=== PATIENT | male | born 1995 | race Caucasian/White ===

== ENCOUNTER 2020-11-04 08:04 | Inpatient (IN) | payer OTHER ==
[2020-11-04] MEDS ORDERED: ASPIRIN 81 MG PO STA (08:18)
[2020-11-04] MEDS ORDERED: MORPHINE SULFATE 2 MG/ML SYRINGE IVP STA (08:18)
--- NOTE | 2020-11-04 08:44 | XR ---
EXAMINATION TYPE: XR chest 2V DATE OF EXAM: 11/04/2020 COMPARISON: NONE HISTORY: Chest pain today. TECHNIQUE: Frontal and lateral views of the chest are obtained. FINDINGS: There is fairly moderate increased perihilar peribronchial cuffing bilaterally. No periphe ral focal airspace opacity. No pleural effusion or pneumothorax seen. The cardiac silhouette size is within normal limits. Note is made of left-sided arch and cardiac apex along with stomach bubble. Overlying EKG leads. The osseous structures are intact. IMPRESSION: Mild to moderate central perihilar peribronchial cuffing consistent with reactive airway disease possibly from a viral bronchiolitis or acute asthma exacerbation. Correlate clinically.
--- NOTE | 2020-11-04 08:50 | ED ---
Chest Pain HPI - General Chief Complaint: Chest Pain Stated Complaint: Chest pain Time Seen by Provider: 11/04/20 08:11 Source: patient, EMS Limitations: no limitations - History of Present Illness Initial Comments: Patient is a 25-year-old male presenting to emergency Department with complaints of chest pain that woke him up this morning. Patient states for the past week he has been feeling short of breath and coughing, but has not had any chest pain until this morning. He denies any fever or chills. He has been having some intermittent nausea, he did have some vomiting this morning. He denies any abdominal pain. Denies History of asthma or COPD. He states he does drink a lot of alcohol, last drink was last night with liquor. He also smokes marijuana. He denies any other drug use. He describes the pain as in the center of his chest, is very sharp, rated as 6/10 at this time. He denies any radiation. He denies history of any blood clots or heart disease. He does not take any medications. He has no further complaints at this time. Upon arrival to the ER, he is afebrile, pulse is 135, rest of vitals are normal. - Related Data Home Medications Medication Instructions Recorded Confirmed Aspirin EC [Ecotrin Low Dose] 81 mg PO DAILY PRN 11/04/20 11/04/20 Ibuprofen [Advil] 200 mg PO Q8HR PRN 11/04/20 11/04/20 Allergies Allergy/AdvReac Type Severity Reaction Status Date / Time No Known Allergies Allergy Verified 11/04/20 08:52 Review of Systems ROS Statement: Those systems with pertinent positive or pertinent negative responses have been documented in the HPI. ROS Other: All systems not noted in ROS Statement are negative. EKG Findings - EKG Comments: EKG Findings:: Sinus tach, T-wave abnormalities, no signs of acute ischemia. Ventricular rate 136, MT interval 134, QT 306. Past Medical History History of Any Multi-Drug Resistant Organisms: None Reported Past Psychological History: No Psychological Hx Reported Smoking Status: Current some day smoker Past Alcohol Use History: Heavy Past Drug Use History: Marijuana General Exam - General Exam Comments Initial Comments: GENERAL: Patient is well-developed and well-nourished. Patient is nontoxic and in mild distress. HEAD: Atraumatic, normocephalic. EYES: Pupils equal round and reactive to light, extraocular movements intact, sclera anicteric, conjunctiva are normal. Eyelids were unremarkable. ENT: TMs normal, nares patent, oropharynx clear without exudates. Moist mucous membranes. NECK: Normal range of motion, supple without lymphadenopathy or JVD. LUNGS: Unlabored respirations. Breath sounds clear to auscultation bilaterally and equal. No wheezes rales or rhonchi. HEART: Tachycardia rate and rhythm without murmurs, rubs or gallops. ABDOMEN: Soft, nontender, normoactive bowel sounds. No guarding, no rebound. No masses appreciated. : Deferred MUSCULOSKELETAL: Normal extremities with adequate strength and normal range of motion, no pitting or edema. No clubbing or cyanosis. NEUROLOGICAL: Patient is alert and oriented x 3. Motor and sensory are also intact. Cranial nerves II through XII grossly intact. Symmetrical smile. Normal speech, normal gait. PSYCH: Normal mood, normal affect. SKIN: Warm, Dry, normal turgor, no rashes or lesions noted. Limitations: no limitations Course Vital Signs 11/04/20 11/04/20 11/04/20 08:10 08:15 08:39 Temperature 98.1 F Pulse Rate 135 H 129 H Respiratory 18 18 18 Rate Blood Pressure 153/103 138/94 O2 Sat by Pulse 98 98 Oximetry Chest Pain [facility] Patient is 25-year-old male here for chest pain that started this morning as well as shortness of breath 1 week. History of alcohol abuse, positive marijuana. Patient did arrive tachycardia at 135, rest of vitals were normal, afebrile. EKG shows sinus tach, no acute process. Chest x-ray shows mild to moderate central perihilar peribronchial cuffing insistent with reactive airway disease. Labs shows slight leukocytosis at 13.6, dimer is elevated at 1.83. Epigastric is 2.2, LDH is 795, troponin 0.015. Serum alcohol is less than 10. Rapid Covid is not detected. CTA of the chest was ordered secondary to elevated dimer, no convincing evidence for PE however there are tiny bilateral pleural effusions, subtle more focal areas of groundglass opacity and approved feel the right lower lung. Patient is on 2 L oxygen, satting 98%, he remains tachycardia in the 120 to 130s. He is in no acute distress. Patient was given some morphine, Ativan. Patient will be admitted for cardiac rule out, versus possible infectious process, versus alcohol withdrawal. Pt accepted by Dr. Goss. Case discussed with Dr. Pat. - Wells Criteria Clinical Symptoms of DVT: (0) No No Alternative Diagnosis: (0) No Immobilization of Surgery in Previous 4 Weeks: (0) No Previous DVT/PE: (0) No Hemoptysis: (0) No Malignancy: (0) No Disposition Clinical Impression: Chest pain, Tachycardia, Dyspnea Disposition: ADMITTED IP TO THIS HOSP Condition: Stable Referrals: Claudio Kohler MD [Primary Care Provider] - 1-2 days Decision Date: 11/04/20 Decision Time: 10:44
[2020-11-04 08:51] LABS: ALT 32 U/L (4-49); AST 34 U/L (17-59); African American GFR (CKD) >90 (>60 ml/min/1.73 sqM); Albumin 4.6 g/dL (3.5-5.0); Alcohol <10 mg/dL; Alkaline Phosphatase 84 U/L (38-126); Anion Gap 13 mmol/L; Blood Urea Nitrogen 13 mg/dL (9-20); Calcium 9.3 mg/dL (8.4-10.2); Carbon Dioxide 20 mmol/L (22-30); Chloride 105 mmol/L (98-107); Glucose 146 mg/dL (74-99); LDH 795 U/L (313-618); Magnesium 1.8 mg/dL (1.6-2.3); Non-African American GFR(CKD) 86 (>60 ml/min/1.73 sqM); Potassium 4.4 mmol/L (3.5-5.1); Sodium 138 mmol/L (137-145); Total Bilirubin 0.8 mg/dL (0.2-1.3); Total Protein 7.9 g/dL (6.3-8.2)
[2020-11-04 08:56] LABS: Basophils # (A) 0.1 k/uL (0-0.2); Basophils % (A) 1 %; Eosinophils # (A) 0.1 k/uL (0-0.7); Eosinophils % (A) 1 %; HGB 17.4 gm/dL (13.0-17.5); Lymphocytes # (A) 1.1 k/uL (1.0-4.8); Lymphocytes % (A) 8 %; MCH 31.7 pg (25.0-35.0); MCHC 33.5 g/dL (31.0-37.0); MCV 94.8 fL (80.0-100.0); Monocytes # (A) 0.6 k/uL (0-1.0); Monocytes % (A) 4 %; Neutrophils # (A) 11.6 k/uL (1.3-7.7); Neutrophils % (A) 86 %; Platelet Count 385 k/uL (150-450); RBC 5.48 m/uL (4.30-5.90); RDW 12.8 % (11.5-15.5); WBC 13.6 k/uL (3.8-10.6)
[2020-11-04 09:01] LABS: Partial Thromboplastin Time 22.7 sec (22.0-30.0); Prothrombin Time 10.3 sec (9.0-12.0)
[2020-11-04 09:16] LABS: D-Dimer 1.83 mg/L FEU (<0.60)
--- NOTE | 2020-11-04 10:03 | CT ---
EXAMINATION TYPE: CT chest angio for PE DATE OF EXAM: 11/04/2020 COMPARISON: Chest x-ray earlier today HISTORY: Elevated d-dimer. Chest pain CT DLP: 582.2 mGycm Automated exposure control for dose reduction was used. CONTRAST: CT Chest for pulmonary embolism performed with with IV Contrast, patient injected with 100 mL of Isov ue 300. FINDINGS: LUNGS: Small to tiny bilateral pleural effusions. Increased central opacities bilaterally. Exam sligh tly suboptimal as patient has difficulty holding breath. Additional areas of more focal groundglass o pacity are identified in the right lower lung towards the periphery. Reference lateral right lower lo be axial image 70 and in the right middle lobe axial image 62. No pneumothorax seen bilaterally. Mild central increased opacity bilaterally. Moderate central peribronchial wall thickening. MEDIASTINUM: There is suboptimal bolus with heterogeneity but no CT evidence for acute pulmonary embo lism. Satisfactory enhancement of the aorta without aneurysm or dissection. No cardiomegaly or peric ardial effusion is seen. Enlarged bilateral hilar lymph nodes. Enlarged 2.9 x 1.9 cm subcarinal lym ph node. OTHER: No additional significant abnormality is seen. IMPRESSION: 1. Suboptimal study but no convincing CT evidence for acute pulmonary embolism. 2. Multiple tiny bilateral pleural effusions and mild central alveolar edema. Correlate for fluid ove rload state. 3. Moderate peribronchial wall thickening and thoracic adenopathy presumed reactive, correlate for ac maria l infectious process, favor viral bronchiolitis. Subtle more focal areas of groundglass opacity in the periphery of the right lower lung are identified raising concern for developing multifocal pneumo nitis.
[2020-11-04] MEDS ORDERED: LORazepam 2 MG/ML INJ IV STA (10:19)
[2020-11-04] MEDS ORDERED: NITROGLYCERIN SL TABS 0.4 MG TAB SUBLINGUAL PRN (10:40)
[2020-11-04] MEDS: AMOXIC-POT CLAV 875-125MG 1 EACH TAB PO SCH ×2 (11:10→21:10)
[2020-11-04] MEDS ORDERED: SODIUM CHLORIDE 0.9% (DEHP FRE 500 ML IV ONE (11:16)
[2020-11-04] MEDS ORDERED: ONDANSETRON 4 MG/2 ML VIAL IVP PRN (11:16)
[2020-11-04] MEDS ORDERED: THIAMINE 100 MG/ML 2 ML VIAL IM STA (11:17)
[2020-11-04] MEDS ORDERED: LORazepam 2 MG/ML INJ IV PRN ×3 (11:17)
--- NOTE | 2020-11-04 11:26 | P.HPIM ---
History of Present Illness H&P Date: 11/04/20 Chief Complaint: Chest pain This is a 25-year-old male with past medical history significant for heavy alcohol abuse who presented to the emergency room with chest pain. Patient said that he woke up from his sleep with a severe chest pain in the middle of his chest that he described as if someone was stepping on his chest. He rated the severity as 7 out of 10. There was no radiation. No diaphoresis or nausea. Patient said that he has been feeling more short of breath over the past week or 2 and having the cough that is productive of clear sputum. He denies any fevers or chills. No sick contact. No other known medical history. Patient said that he smoked marijuana on a daily basis and he drink a fifth of whiskey daily. His last drink was at 8 PM last night. Patient was evaluated in the emergency room and was found to have evidence of sepsis without septic shock. D-dimer was elevated but CT angiogram was negative for any obvious PE though it was a suboptimal study. Patient was noted to have evidence of bronchitis on imaging. He was also noted to be tachycardic with a heart rate up to 140. Twelve-lead EKG in the emergency room showed no acute is chemic changes. Initial troponin was negative. Patient was placed on observation for further evaluation Review of Systems Review of system: 14 points review of systems were obtained and were negative except to what were mentioned in the HPI. Past Medical History History of Any Multi-Drug Resistant Organisms: None Reported Past Psychological History: No Psychological Hx Reported Smoking Status: Current some day smoker Past Alcohol Use History: Heavy Past Drug Use History: Marijuana Medications and Allergies Home Medications Medication Instructions Recorded Confirmed Type Aspirin EC [Ecotrin Low Dose] 81 mg PO DAILY PRN 11/04/20 11/04/20 History Ibuprofen [Advil] 200 mg PO Q8HR PRN 11/04/20 11/04/20 History Allergies Allergy/AdvReac Type Severity Reaction Status Date / Time No Known Allergies Allergy Verified 11/04/20 08:52 Physical Exam Vitals: Vital Signs Temp Pulse Resp BP Pulse Ox 11/04/20 10:14 135 H 18 141/106 98 11/04/20 09:14 132 H 18 142/90 98 11/04/20 08:39 129 H 18 138/94 98 11/04/20 08:15 18 11/04/20 08:10 98.1 F 135 H 18 153/103 98 Intake and Output 11/03/20 11/04/20 11/04/20 22:59 06:59 14:59 Other: Weight 108.862 kg General: The patient is awake and alert, in no distress Eye: there is normal conjunctiva bilaterally. Neck: The neck is supple, there is no JVD. Cardiovascular: Normal S1-S2, no S3-S4, no murmurs. Respiratory: Lungs clear to auscultation bilaterally Gastrointestinal: Abdomen is soft, nontender Musculoskeletal: There is no pedal edema. Neurological:. Speech is normal. Skin: Skin is warm and dry Results CBC & Chem 7: 11/04/20 08:12 11/04/20 08:12 Labs: Abnormal Lab Results - Last 24 Hours (Table) 11/04/20 11/04/20 11/04/20 Range/Units 08:12 08:12 08:12 WBC 13.6 H (3.8-10.6) k/uL Neutrophils # 11.6 H (1.3-7.7) k/uL D-Dimer 1.83 H (<0.60) mg/L FEU Carbon Dioxide 20 L (22-30) mmol/L Glucose 146 H (74-99) mg/dL Plasma Lactic Acid Omar (0.7-2.0) mmol/L Lactate Dehydrogenase 795 H (313-618) U/L 11/04/20 Range/Units 08:12 WBC (3.8-10.6) k/uL Neutrophils # (1.3-7.7) k/uL D-Dimer (<0.60) mg/L FEU Carbon Dioxide (22-30) mmol/L Glucose (74-99) mg/dL Plasma Lactic Acid Omar 2.2 H* (0.7-2.0) mmol/L Lactate Dehydrogenase (313-618) U/L Assessment and Plan Assessment: 1. Chest pain, mostly atypical in nature. Twelve-lead EKG showed no acute ischemic changes. Initial troponin was negative. We will continue telemetry monitoring. Cardiology consulted by ER staff 2. Acute bronchitis, most likely viral but will cover patient with antibiotic in the form of Augmentin for 5 days to cover any bacterial infection. Sputum culture ordered. COVID-19 negative in the ER 3. Sepsis without septic shock, lactic acid slightly elevated. We will start aggressive IV fluid hydration. Blood culture sent and pending. 4. Elevated d-dimer, CT angiogram in the ER negative for PE though was a subop timal study. PE is less likely clinically. I would obtain ultrasound of the lower extremity to rule out DVT. 5. Alcohol withdrawal, I would start the patient on Valium 5 mg 3 times a day. CIWA protocol with IV Ativan as needed. 6. Sinus tachycardia, secondary to above 7. Alcohol abuse: Counseled extensively to quit. Social work consult to help with resources. Started on vitamins. 8. Marijuana smoking, counseled to quit 9. DVT prophylaxis with subcu heparin Today, I reviewed his medication list and lab work results. I ordered IV fluid bolus with normal saline 500 mL. Continue IV fluid hydration with D5/half- normal saline at the 100 mL per hour. Continue telemetry monitoring. Repeat lab work in the morning.
[2020-11-04] MEDS: PANTOPRAZOLE 40 MG/10 ML VIAL IVP SCH (11:43)
[2020-11-04] MEDS: diazePAM 5 MG TAB PO SCH ×3 (11:43→21:10)
--- NOTE | 2020-11-04 13:05 | CONS ---
CONSULTATION Mr. Justin is a 25-year-old male who has not seen a physician in a while, presented to the emergency room with an episode of chest discomfort that woke him up from sleep. The discomfort was in the middle of the chest. He noted that his heart rate was fast and because of that came into the emergency room. For the last 10 to 14 days, he has been complaining of progressive dyspnea with sweating and cough, but no documented fever. He is not active physically. He had no prior episode of chest discomfort. The discomfort continues until my evaluation, but it is better. He denies any peripheral edema. No syncope. He has no PND, orthopnea. He has no prior cardiac history. His coronary risk factors are negative for documented hypertension or diabetes. He has no hyperlipidemia. He does not smoke tobacco, but smokes marijuana on a daily basis as well as drinks large amount of alcohol daily and caffeine. His medication at home include aspirin and Advil on as needed basis. REVIEW OF SYSTEMS: RESPIRATORY SYSTEM: He had dyspnea on exertion with a cough. GI SYSTEM: No recent GI bleeding. No peptic ulcer disease. SYSTEM: No dysuria or hematuria. NERVOUS SYSTEM: No stroke or seizure. PHYSICAL EXAMINATION: A 25-year-old male, alert, oriented, in no apparent distress. Blood pressure 135/109 with the heart rate in the 130s. HEAD: Normocephalic. EYES: Sclerae nonicteric. NECK: Good carotid upstroke. No bruit. LUNGS: With scattered crackles bilaterally. HEART: Tachycardic, S1, S2, plus S4. No rub , systolic murmur. ABDOMEN: Soft, nontender. Positive bowel sounds. No organomegaly. EXTREMITIES: No edema. Intact distal pulses. LAB DATA: Lab data revealed troponin less of 0.015. LDL 795. Plasma lactic acid 2.2. BUN and creatinine of 13 and 1.17. Potassium 4.4. D-dimer of 1.83. Hemoglobin of 17.4, white blood cell of 13.6. EKG revealed a sinus tachycardia with borderline left axis deviation and nonspecific ST- T wave changes. Chest CT angiogram shows multiple tiny bilateral pleural effusion and mild centrilobular edema with moderate peribronchial wall thickening and thoracic adenopathy. There is some focal area of ground-glass opacity. IMPRESSION: 1. Chest discomfort, probably noncardiac. No evidence to suggest acute coronary syndrome. 2. Abnormal chest x-ray with progressive dyspnea, rule out infectious process. 3. Sinus tachycardia, most likely reactive. 4. Elevated blood pressure. 5. Chronic alcohol intake. 6. Chronic marijuana intake. RECOMMENDATION: I will obtain echocardiogram with Doppler. We will check his thyroid function test. I will start him on low-dose beta nancy because of his hypertension. I will continue the rest of his medical regimen and depending on his progress, further recommendation will be made. Thank you for this consult. We will follow with you. YAIRL / IJN: [id number] / HILDA
[2020-11-04] MEDS: DEXTROSE 5%-0.45% NACL 1,000 ML IV SCH ×2 (13:35→21:18)
[2020-11-04] MEDS: METOPROLOL TARTRATE 25 MG TAB PO SCH ×2 (13:35→21:10)
--- NOTE | 2020-11-04 15:42 | US ---
EXAMINATION TYPE: US venous doppler duplex LE BI DATE OF EXAM: 11/04/2020 3:15 PM COMPARISON: NONE CLINICAL HISTORY: Rule out DVT. SIDE PERFORMED: Bilateral TECHNIQUE: The lower extremity deep venous system is examined utilizing real time linear array sonog esther with graded compression, doppler sonography and color-flow sonography. VESSELS IMAGED: Common Femoral Vein Deep Femoral Vein Greater Saphenous Vein * Femoral Vein Popliteal Vein Small Saphenous Vein * Proximal Calf Veins (* superficial vessels) Right Leg: Negative for DVT Left Leg: Negative for DVT IMPRESSION: No evidence for DVT at this time.
--- NOTE | 2020-11-04 15:56 | P.CNPUL ---
History of Present Illness Consult date: 11/04/20 Requesting physician: Mariano Cuba Reason for consult: dyspnea, chest pain, abnormal CXR/CT Chief complaint: Chest pain, shortness of breath History of present illness: A very pleasant 25-year-old male patient with no current primary care provider. No significant medical history. He does drink a pint of liquor on a daily basis. He also smokes marijuana. He denied any other drug use. He woke up early this morning with significant chest pain in the center of his chest. He had been fighting an upper respiratory infection earlier in the week. Hemodynamically emergency room secondary to the chest pain. Chest x-ray revealed mild to moderate central perihilar bronchial cuffing consistent with reactive airway disease possibly viral bronchiolitis. CT angiogram ruled out pulmonary embolism. There is a tiny bilateral pleural effusions. Subtle areas of groundglass opacity and some moderate peribronchial wall thickening and thoracic adenopathy. Largest measuring 2.9 x 1.9 cm in the subcarinal lymph node. White count 13.6. Hemoglobin 17.4. D-dimer 1.83. Sodium 138. Potassium 4.4. Glucose 146. Initial lactic 2.2. Currently 1.6. LDH 795. Troponin 0.015, 0.358. ProBNP 1010. Serum alcohol less than 10. Coronavirus not detected. Doppler of the lower extremities pending. Echocardiogram pending. He's been initiated on Augmentin, IV diuretics, Aldactone, adan inhibitors, beta blockers per cardiology. He's also been placed on the CIWA protocol. He is seen today in consultation on the selective care unit. He is currently sitting up in bed. Awake and alert in no acute distress. Maintaining O2 saturations in the upper 90s on room air. He remains tachycardic in the 130s. Somewhat hypertensive. Afebrile. Heparin for DVT prophylaxis. Review of Systems REVIEW OF SYSTEMS: CONSTITUTIONAL: Denies any recent significant weight loss or weight gain. EYES: Denies change in vision. EARS, NOSE, MOUTH, THROAT: Denies headaches, denies sore throat. CARDIOVASCULAR: Positive for chest pain, palpitations or syncopal episodes. RESPIRATORY: Positive for shortness of breath, cough, congestion no hemoptysis. GASTROINTESTINAL: Denies change in appetite, denies abdominal pain GENITOURINARY: Denies hematuria, denies infections. MUSKULOSKELETAL: Denies pain, denies swelling. INTEGUMENTARY: Denies rash, denies eczema. NEUROLOGICAL: Denies recent memory loss, no recent seizure activity. PSYCHIATRIC: Denies anxiety, denies depression. HEMATOLOGIC/LYMPHATIC: Denies anemia, denies enlarged lymph nodes. Past Medical History Past Medical History: No Reported History History of Any Multi-Drug Resistant Organisms: None Reported Past Surgical History: No Surgical Hx Reported Past Anesthesia/Blood Transfusion Reactions: Unable to Obtain Additional Past Anesthesia/Blood Transfusion Reaction / Comment(s): Pt has never had surgery Smoking Status: Never smoker - Past Family History Father Family Medical History: Hypertension Mother Family Medical History: No Reported History Medications and Allergies Home Medications Medication Instructions Recorded Confirmed Type Aspirin EC [Ecotrin Low Dose] 81 mg PO DAILY PRN 11/04/20 11/04/20 History Ibuprofen [Advil] 200 mg PO Q8HR PRN 11/04/20 11/04/20 History Allergies Allergy/AdvReac Type Severity Reaction Status Date / Time No Known Allergies Allergy Verified 11/04/20 08:52 Physical Exam Vitals: Vital Signs Temp Pulse Pulse Resp BP BP Pulse Ox 11/04/20 14:25 139 H 16 140/90 93 L 11/04/20 13:00 98.3 F 135 H 22 147/83 99 11/04/20 12:00 133 H 22 145/97 99 11/04/20 11:30 98.3 F 133 H 133 H 20 135/109 97 11/04/20 10:14 135 H 18 141/106 98 11/04/20 09:14 132 H 18 142/90 98 11/04/20 08:39 129 H 18 138/94 98 11/04/20 08:15 18 11/04/20 08:10 98.1 F 135 H 18 153/103 98 Intake and Output 11/04/20 11/04/20 11/04/20 06:59 14:59 22:59 Other: Weight 108.862 kg GENERAL EXAM: Alert, active, pleasant 25-year-old gentleman, on room air, comfortable in no apparent distress. HEAD: Normocephalic. EYES: Normal reaction of pupils, equal size. NOSE: Clear with pink turbinates. THROAT: No erythema or exudates. NECK: No masses, no JVD. CHEST: No chest wall deformity. LUNGS: Equal air entry with faint crackles in the posterior bases. CVS: S1 and S2 normal with audible rub, tachycardic, regular. ABDOMEN: No hepatosplenomegaly, normal bowel sounds, no guarding or rigidity. SPINE: No scoliosis or deformity SKIN: No rashes CENTRAL NERVOUS SYSTEM: No focal deficits, tone is normal in all 4 extremities. EXTREMITIES: There is no peripheral edema. No clubbing, no cyanosis. P eripheral pulses are intact. Results - Laboratory Findings CBC and BMP: 11/04/20 08:12 11/04/20 08:12 PT/INR, D-dimer PT 10.3 sec (9.0-12.0) 11/04/20 08:12 INR 1.0 (<1.2) 11/04/20 08:12 D-Dimer 1.83 mg/L FEU (<0.60) H 11/04/20 08:12 Abnormal lab findings: Abnormal Labs 11/04/20 11/04/20 11/04/20 08:12 08:12 08:12 WBC 13.6 H Neutrophils # 11.6 H D-Dimer 1.83 H Carbon Dioxide 20 L Glucose 146 H Plasma Lactic Acid Omar Lactate Dehydrogenase 795 H Troponin I 11/04/20 11/04/20 08:12 11:01 WBC Neutrophils # D-Dimer Carbon Dioxide Glucose Plasma Lactic Acid Omar 2.2 H* Lactate Dehydrogenase Troponin I 0.358 H* - Diagnostic Findings Chest x-ray: image reviewed Assessment and Plan Assessment: 1 Chest pain of unclear etiology. Pulmonary embolism ruled out 2 Troponin leak, tachycardia, bilateral pleural effusions, mild central alveolar edema. Echocardiogram pending. 3 Thoracic adenopathy of unclear etiology, presumed reactive, possible acute infectious process versus viral bronchiolitis, sarcoidosis. 4 Recent symptoms of upper respiratory infection 5 Mild leukocytosis 6 Elevated d-dimer. CT angiogram ruled out pulmonary embolism. Dopplers of the lower extremities pending. 7 Daily alcohol use 8 Marijuana use Plan: The patient was seen and evaluated by Dr. Burrell Chest x-ray, CAT scan and labs reviewed Dopplers of the lower extremity pending Heparin for DVT prophylaxis Obtain ADAN and sed rate levels Possible alcoholic cardiomyopathy Echocardiogram pending Continue IV Lasix, Aldactone, Adan catheter, beta blockers Continue CIWA protocol Continue empiric antibiotics We will continue to follow and make further recommendations based on his clinical status I, the cosigning physician, performed a history & physical examination of the patient. Lungs sounds with faint crackles in the posterior bases. Maintaining good O2 saturations in the 90s on room air. I discussed the assessment and plan of care with my nurse practitioner, Dagmar Ramos. I attest to the above consultation as dictated by her. Time with Patient: Greater than 30
[2020-11-04] MEDS: ATORVASTATIN 80 MG TAB PO SCH (16:48)
[2020-11-04] MEDS: THIAMINE 100 MG TAB PO SCH (16:48)
[2020-11-04] MEDS: HEPARIN SOD,PORK IN 0.45% NACL 25,000 UNIT in 0.45% NACL 1 250ML.BAG IV SCH (16:48)
--- NOTE | 2020-11-04 18:00 | ECHOF ---
Referral Reason:LV function MEASUREMENTS -------- HEIGHT: 172.7 cm WEIGHT: 108.9 kg BP: 135/109 RVIDd: 3.1 cm (< 3.3) IVSd: 1.1 cm (0.6 - 1.1) LVIDd: 5.0 cm (3.9 - 5.3) LVPWd: 1.0 cm (0.6 - 1.1) IVSs: 1.5 cm LVIDs: 4.2 cm LVPWs: 1.4 cm LA Diam: 4.7 cm (2.7 - 3.8) LAESV Index (A-L): 37.74 ml/m Ao Diam: 3.4 cm (2.0 - 3.7) AV Cusp: 2.2 cm (1.5 - 2.6) MV EXCURSION: 17.701 mm (> 18.000) MV EF SLOPE: 233 mm/s (70 - 150) EPSS: 1.8 cm RAP: 5.00 mmHg RVSP: 54.18 mmHg FINDINGS -------- Sinus rhythm. Resting tachycardia (HR>100bpm). This was a technically adequate study. The left ventricular size is normal. There is borderline concentric left ventricular hypertrophy. Overall left ventricular systolic function is severely impaired with, an EF < 20%. The right ventricle is normal in size. The right ventricular systolic function is moderately impair ed. LA is moderately dilated 34-39 ml/m2 The right atrial size is normal. Interatrial and interventricular septum intact. The aortic valve is bicuspid. The mitral valve is normal. Xpeq-wv-advckyou mitral regurgitation is present. Bocg-ky-jherrkju tricuspid regurgitation present. There is moderate pulmonary hypertension. The r ight ventricular systolic pressure, as measured by Doppler, is 54.18mmHg. There is no pulmonic regurgitation present. The aortic root size is normal. IVC Not well visulized. There is no pericardial effusion. CONCLUSIONS -------- 1. There is borderline concentric left ventricular hypertrophy. 2. Overall left ventricular systolic function is severely impaired with, an EF < 20%. 3. LA is moderately dilated 34-39 ml/m2 4. The aortic valve is bicuspid. 5. Uyyb-ae-ghufmzzh mitral regurgitation is present. 6. Hszq-lm-gaguuoqv tricuspid regurgitation present. 7. There is moderate pulmonary hypertension. 8. There is no pericardial effusion. CLAIMS TECHNICIAN: Sherri Rebollar RDCS
[2020-11-04] MEDS ORDERED: SPIRONOLACTONE 25 MG TAB PO SCH (21:00)
[2020-11-04] MEDS ORDERED: HEPARIN SODIUM,PORCINE 5,000 UNIT/ML 1 ML VIAL SQ SCH (21:00)
[2020-11-04] MEDS: FUROSEMIDE 10 MG/ML 4 ML VIAL IV SCH (21:09)
[2020-11-04] MEDS: lisinopriL 5 MG TAB PO SCH (21:10)
[2020-11-04 23:40] LABS: Ferritin 147.8 ng/mL (22.0-322.0)
[2020-11-04] MEDS: guaiFENesin SYRUP 100MG/5ML 200 MG/10 ML CUP PO PRN (23:57)
[2020-11-05] MEDS: HEPARIN SODIUM,PORCINE 5,000 UNIT/ML 1 ML VIAL IV PRN ×3 (02:05→17:47)
[2020-11-05] MEDS: THIAMINE 100 MG TAB PO SCH ×2 (06:21→16:53)
[2020-11-05] MEDS: ASPIRIN 81 MG PO SCH (08:26)
[2020-11-05] MEDS: lisinopriL 5 MG TAB PO SCH ×2 (08:26→20:24)
[2020-11-05] MEDS: ATORVASTATIN 80 MG TAB PO SCH (08:26)
[2020-11-05] MEDS: FUROSEMIDE 10 MG/ML 4 ML VIAL IV SCH ×2 (08:27→20:24)
[2020-11-05] MEDS: AMOXIC-POT CLAV 875-125MG 1 EACH TAB PO SCH (08:27)
[2020-11-05] MEDS: METOPROLOL TARTRATE 25 MG TAB PO SCH ×4 (08:27→20:24)
[2020-11-05 08:28] LABS: Basophils # (A) 0.2 k/uL (0-0.2); Basophils % (A) 1 %; Eosinophils # (A) 0.1 k/uL (0-0.7); Eosinophils % (A) 1 %; HCT 51.2 % (39.0-53.0); HGB 17.3 gm/dL (13.0-17.5); Lymphocytes # (A) 1.5 k/uL (1.0-4.8); Lymphocytes % (A) 13 %; MCHC 33.9 g/dL (31.0-37.0); MCV 94.4 fL (80.0-100.0); Mean Platelet Volume 6.7; Monocytes # (A) 0.7 k/uL (0-1.0); Monocytes % (A) 6 %; Neutrophils % (A) 77 %; Platelet Count 324 k/uL (150-450); RBC 5.42 m/uL (4.30-5.90); RDW 12.6 % (11.5-15.5); WBC 11.8 k/uL (3.8-10.6)
[2020-11-05] MEDS: PANTOPRAZOLE 40 MG/10 ML VIAL IVP SCH (08:28)
[2020-11-05] MEDS: SPIRONOLACTONE 25 MG TAB PO SCH (08:28)
[2020-11-05] MEDS: diazePAM 5 MG TAB PO SCH ×3 (08:36→20:24)
[2020-11-05 08:45] LABS: African American GFR (CKD) >90 (>60 ml/min/1.73 sqM); Anion Gap 10 mmol/L; Blood Urea Nitrogen 8 mg/dL (9-20); Calcium 9.3 mg/dL (8.4-10.2); Carbon Dioxide 25 mmol/L (22-30); Chloride 101 mmol/L (98-107); Cholesterol 236 mg/dL (<200); Glucose 114 mg/dL (74-99); HDL Cholesterol 63 mg/dL (40-60); LDL Cholesterol,Calculated 137 mg/dL (0-99); Non-African American GFR(CKD) >90 (>60 ml/min/1.73 sqM); Sodium 136 mmol/L (137-145); Triglycerides 179 mg/dL (<150)
[2020-11-05] MEDS ORDERED: ASPIRIN 325 MG TAB PO SCH (09:00)
--- NOTE | 2020-11-05 09:02 | XR ---
EXAMINATION TYPE: XR chest 1V portable DATE OF EXAM: 11/05/2020 COMPARISON: Prior chest x-ray and CT 11/04/2020 HISTORY: Congestive heart failure TECHNIQUE: Single frontal view of the chest is obtained. FINDINGS: Findings are similar to prior exam. Patient is rotated. No evident pneumothorax or pleural effusion. Cardiomediastinal silhouette is stable. IMPRESSION: Patient's pleural effusions are not seen, interstitial edema changes appear slightly imp roved
--- NOTE | 2020-11-05 10:47 | P.PN ---
Subjective Progress Note Date: 11/05/20 This is a 25-year-old gentleman who was seen in consultation by Dr. Cuba. He presented to the hospital with symptoms of chest discomfort that woke him from sleep. He also noted that his heart rate was quite fast. He came to the emergency room for further evaluation. Over the past 10-14 days patient has been complaining of progressive dyspnea as well as associated sweating and cough with no documented fever. His coronary risk factors are negative for documented hypertension, diabetes. He has no hyperlipidemia, he does not smoke tobacco but he does smoke marijuana on a daily basis and drinks at least a pint of alcohol daily as well as caffeine. His initial EKG on presentation here showed a sinus tachycardia. His chest x-ray showed mild to moderate central perihilar bronchial cuffing consistent with reactive airway disease, possibly viral bronchiolitis. CTA ruled out a pulmonary embolism but did show tiny bilateral pleural effusions and several areas of groundglass O pace that he, wall thickening, and thoracic adenopathy. Largest measuring 2.9 x 1.97 cm in the subcarinal lymph node. He had an echocardiogram with Doppler study performed which revealed an ejection fraction of less than 20%, mild to moderate MR, gauf-ec-mosxzhbo TR and moderate pulmonary hypertension, no evidence of pericardial effusion. Bilateral venous duplex study negative for DVT in either lower extremity. Repeat chest x-ray was performed, pleural effusions were not noted, interstitial edema changes appeared slightly improved. Patient was complaining of some intermittent abdominal discomfort this morning. No diarrhea. Blood pressure 120/80, heart rate in the 120s, 95% on room air. Whit e blood cell count 11.8, TRAE globin 17.3, platelet count 324. Sodium 136, potassium 4.0, BUN 8, creatinine 1.1. Troponins 0.015, 0.358, 4.7. Cholesterol 236, triglycerides 179, LDL 137, HDL 63. Objective - Vital Signs Vital signs: Vital Signs Temp 98.5 F 11/05/20 08:23 Pulse 128 H 11/05/20 08:23 Resp 18 11/05/20 08:23 BP 119/87 11/05/20 08:23 Pulse Ox 95 11/05/20 08:23 Intake & Output 11/04/20 11/05/20 11/05/20 18:59 06:59 18:59 Intake Total 567.87 103.948 Balance 567.87 103.948 Weight 108.862 kg 110.5 kg Intake: Intake, IV Titration 92.87 103.948 Amount Heparin Sod,Pork in 0.45% 92.87 103.948 NaCl 25,000 unit In 0.45 % NaCl 1 250ml.bag @ 9.19 UNITS/KG/HR 10.004 mls/ hr IV .Q24H [facility] Rx#: [id number] Oral 475 Other: Voiding Method Toilet Toilet # Voids 6 - Exam GENERAL EXAM: Alert, active, pleasant 25-year-old gentleman, on room air, comfortable in no apparent distress. HEAD: Normocephalic. EYES: Normal reaction of pupils, equal size. NOSE: Clear with pink turbinates. THROAT: No erythema or exudates. NECK: No masses, no JVD. CHEST: No chest wall deformity. LUNGS: Equal air entry with faint crackles in the posterior bases. CVS: S1 and S2 normal with systolic murmur , tachycardic, regular. ABDOMEN: No hepatosplenomegaly, normal bowel sounds, no guarding or rigidity. SPINE: No scoliosis or deformity SKIN: No rashes CENTRAL NERVOUS SYSTEM: No focal deficits, tone is normal in all 4 extremities. EXTREMITIES: There is no peripheral edema. No clubbing, no cyanosis. Peripheral pulses are intact. - Labs CBC & Chem 7: 11/05/20 08:04 11/05/20 08:04 Labs: Abnormal Lab Results - Last 24 Hours (Table) 11/04/20 11/04/20 11/05/20 Range/Units 11:01 14:32 08:04 WBC (3.8-10.6) k/uL Neutrophils # (1.3-7.7) k/uL APTT (22.0-30.0) sec Sodium 136 L (137-145) mmol/L BUN 8 L (9-20) mg/dL Glucose 114 H (74-99) mg/dL Troponin I 0.358 H* 4.750 H* (0.000-0.034) ng/mL Triglycerides 179 H (<150) mg/dL Cholesterol 236 H (<200) mg/dL LDL Cholesterol, Calc 137 H (0-99) mg/dL HDL Cholesterol 63 H (40-60) mg/dL 11/05/20 11/05/20 Range/Units 08:04 08:04 WBC 11.8 H (3.8-10.6) k/uL Neutrophils # 9.0 H (1.3-7.7) k/uL APTT 33.6 H (22.0-30.0) sec Sodium (137-145) mmol/L BUN (9-20) mg/dL Glucose (74-99) mg/dL Troponin I (0.000-0.034) ng/mL Triglycerides (<150) mg/dL Cholesterol (<200) mg/dL LDL Cholesterol, Calc (0-99) mg/dL HDL Cholesterol (40-60) mg/dL Microbiology - Last 24 Hours (Table) 11/04/20 16:00 Gram Stain - Preliminary Sputum Sputum Culture - Preliminary Assessment and Plan Plan: Assessment and plan #1 chest discomfort, abnormality in troponins suggestive of possible acute coronary syndrome. Echocardiogram with Doppler study reveals an ejection fraction of less than 20% #2 cardiomyopathy, could be ischemic in nature, could also be secondary to EtOH abuse, patient drinks a pint of alcohol a day. #3 sinus tachycardia, PE ruled out. #4 marijuana use #5 EtOH abuse, patient drinks a pint of alcohol a day. On [facility] protocol #6 abnormal chest x-ray, thoracic adenopathy, possible acute infectious process in a patient with a recent upper respiratory infection, COVID negative Plan We will continue the patient on a baby aspirin as well as Lipitor, IV heparin, MARYLOU inhibitor, increase dose of beta nancy for more optimal heart rate control, continue IV Lasix, monitoring intake and output along with daily weights and daily lytes BUN and creatinine. Chest x-ray from today did show some improvement in congestion. Continue Aldactone. Patient will require a cardiac catheterization to rule out underlying coronary artery disease. Further recommendations to follow. DNP note has been reviewed, I agree with a documented findings and plan of care. Patient was seen and examined.
--- NOTE | 2020-11-05 11:29 | P.PN ---
Subjective Progress Note Date: 11/05/20 Patient was up in a chair when I saw him. He denies any shortness of breath. No chest pain. No acute events overnight reported by nursing staff. Objective - Vital Signs Vital signs: Vital Signs Temp 98.5 F 11/05/20 08:23 Pulse 128 H 11/05/20 08:23 Resp 18 11/05/20 08:23 BP 119/87 11/05/20 08:23 Pulse Ox 95 11/05/20 08:23 Intake & Output 11/04/20 11/05/20 11/05/20 18:59 06:59 18:59 Intake Total 567.87 103.948 Balance 567.87 103.948 Weight 108.862 kg 110.5 kg Intake: Intake, IV Titration 92.87 103.948 Amount Heparin Sod,Pork in 0.45% 92.87 103.948 NaCl 25,000 unit In 0.45 % NaCl 1 250ml.bag @ 9.19 UNITS/KG/HR 10.004 mls/ hr IV .Q24H [facility] Rx#: [id number] Oral 475 Other: Voiding Method Toilet Toilet # Voids 6 - Exam General: The patient is awake and alert, in no distress Eye: there is normal conjunctiva bilaterally. Neck: The neck is supple, there is no JVD. Cardiovascular: Normal S1-S2, no S3-S4, no murmurs. Respiratory: Lungs clear to auscultation bilaterally Gastrointestinal: Abdomen is soft, nontender Musculoskeletal: There is no pedal edema. Neurological:. Speech is normal. Skin: Skin is warm and dry - Labs CBC & Chem 7: 11/05/20 08:04 11/05/20 08:04 Labs: Abnormal Lab Results - Last 24 Hours (Table) 11/04/20 11/04/20 11/05/20 Range/Units 11:01 14:32 08:04 WBC (3.8-10.6) k/uL Neutrophils # (1.3-7.7) k/uL APTT (22.0-30.0) sec Sodium 136 L (137-145) mmol/L BUN 8 L (9-20) mg/dL Glucose 114 H (74-99) mg/dL Troponin I 0.358 H* 4.750 H* (0.000-0.034) ng/mL Triglycerides 179 H (<150) mg/dL Cholesterol 236 H (<200) mg/dL LDL Cholesterol, Calc 137 H (0-99) mg/dL HDL Cholesterol 63 H (40-60) mg/dL 11/05/20 11/05/20 Range/Units 08:04 08:04 WBC 11.8 H (3.8-10.6) k/uL Neutrophils # 9.0 H (1.3-7.7) k/uL APTT 33.6 H (22.0-30.0) sec Sodium (137-145) mmol/L BUN (9-20) mg/dL Glucose (74-99) mg/dL Troponin I (0.000-0.034) ng/mL Triglycerides (<150) mg/dL Cholesterol (<200) mg/dL LDL Cholesterol, Calc (0-99) mg/dL HDL Cholesterol (40-60) mg/dL Microbiology - Last 24 Hours (Table) 11/04/20 08:59 Blood Culture - Preliminary Blood No Growth after 24 hours 11/04/20 16:00 Gram Stain - Preliminary Sputum Sputum Culture - Preliminary Assessment and Plan Assessment: This is a 25-year-old male with past medical history significant for heavy alcohol abuse who presented to the emergency room with chest pain. Patient was evaluated in the ER and admitted to the hospital for further management of his medical problems noted below. 1. Non-ST elevation [place], treated with optimal medical management and IV heparin. Currently chest pain-free. Troponin peaked at 4.7. Cardiology following closely. Continue aspirin daily. 2. Severe cardiomyopathy possibly ischemic versus alcohol-induced. Echocardiog larry showed EF of 25%. Patient started on metoprolol, Aldactone, and lisinopril. 3. Acute systolic heart failure exacerbation, started on IV Lasix by cardiology. 4. Acute bronchitis, most likely viral but will cover patient with antibiotic in the form of Augmentin for 5 days to cover any bacterial infection. Sputum culture ordered. COVID-19 negative in the ER 5. Sepsis without septic shock, lactic acid slightly elevated. We will start aggressive IV fluid hydration. Blood culture sent and pending. 6. Elevated d-dimer, CT angiogram in the ER negative for PE though was a suboptimal study. PE is less likely clinically. I would obtain ultrasound of the lower extremity to rule out DVT. 7. Alcohol withdrawal, I started the patient on Valium 5 mg 3 times a day. CIWA protocol with IV Ativan as needed. 8. Alcohol abuse: Counseled extensively to quit. Social work consult to help w [facility]. Started on vitamins. 9. Marijuana smoking, counseled to quit 10. DVT prophylaxis currently on IV heparin drip Today, I reviewed his medication list and lab work results. Awaiting further recommendation from cardiology regarding possible left heart catheterization Continue telemetry monitoring. Repeat lab work in the morning. I had a prolonged discussion with the patient regarding his current condition. I emphasized the importance of alcohol assistance. He verbalized understanding. I answered all of his questions to satisfaction.
[2020-11-05] MEDS: ACETAMINOPHEN TAB 325 MG TAB PO PRN (11:48)
--- NOTE | 2020-11-05 14:09 | P.PN ---
Subjective Progress Note Date: 11/05/20 Principal diagnosis: Cardiomyopathy A very pleasant 25-year-old male patient with no current primary care provider. No significant medical history. He does drink a pint of liquor on a daily basis. He also smokes marijuana. He denied any other drug use. He woke up early this morning with significant chest pain in the center of his chest. He had been fighting an upper respiratory infection earlier in the week. Hemodynamically emergency room secondary to the chest pain. Chest x-ray revealed mild to moderate central perihilar bronchial cuffing consistent with reactive airway disease possibly viral bronchiolitis. CT angiogram ruled out pulmonary embolism. There is a tiny bilateral pleural effusions. Subtle areas of groundglass opacity and some moderate peribronchial wall thickening and thoracic adenopathy. Largest measuring 2.9 x 1.9 cm in the subcarinal lymph node. White count 13.6. Hemoglobin 17.4. D-dimer 1.83. Sodium 138. Potassium 4.4. Glucose 146. Initial lactic 2.2. Currently 1.6. LDH 795. Troponin 0.015, 0.358. ProBNP 1010. Serum alcohol less than 10. Coronavirus not detected. Doppler of the lower extremities pending. Echocardiogram pending. He's been initiated on Augmentin, IV diuretics, Aldactone, adan inhibitors, beta blockers per cardiology. He's also been placed on the CIWA protocol. He is seen today in consultation on the selective care unit. He is currently sitting up in bed. Awake and alert in no acute distress. Maintaining O2 saturations in the upper 90s on room air. He remains tachycardic in the 130s. Somewhat hypertensive. Afebrile. Heparin for DVT prophylaxis. The patient is seen today 11/05/2020 in follow-up on the selective care unit. He is currently sitting up in bed. Awake and alert in no acute distress. He states he is breathing quite a bit easier today compared to yesterday. Currently denies any chest pain. No palpitations, dizziness or lightheadedness. Blood and sputum cultures are pending. White count 11.8. Hemoglobin 17.3. Sodium 136. Potassium 4.0. Creatinine 1.11. Peak troponin 4.75. Total cholesterol 236, LDL 137, HDL 63, triglycerides 179. Sed rate 4. Chest x-ray r eveals improved interstitial edema. Dopplers of lower extremity negative for DVT. Echocardiogram revealed severely impaired left ventricular systolic function with ejection fraction less than 20%. Objective - Vital Signs Vital signs: Vital Signs Temp 98.6 F 11/05/20 11:45 Pulse 121 H 11/05/20 11:45 Resp 18 11/05/20 12:51 BP 126/73 11/05/20 11:45 Pulse Ox 99 11/05/20 11:45 Intake & Output 11/04/20 11/05/20 11/05/20 18:59 06:59 18:59 Intake Total 567.87 103.948 Balance 567.87 103.948 Weight 108.862 kg 110.5 kg Intake: Intake, IV Titration 92.87 103.948 Amount Heparin Sod,Pork in 0.45% 92.87 103.948 NaCl 25,000 unit In 0.45 % NaCl 1 250ml.bag @ 9.19 UNITS/KG/HR 10.004 mls/ hr IV .Q24H [facility] Rx#: [id number] Oral 475 Other: Voiding Method Toilet Toilet # Voids 6 - Exam GENERAL EXAM: Alert, active, pleasant 25-year-old gentleman, on room air, comfortable in no apparent distress. HEAD: Normocephalic. EYES: Normal reaction of pupils, equal size. NOSE: Clear with pink turbinates. THROAT: No erythema or exudates. NECK: No masses, no JVD. CHEST: No chest wall deformity. LUNGS: Equal air entry with faint crackles in the posterior bases. CVS: S1 and S2 normal with audible rub, tachycardic, regular. ABDOMEN: No hepatosplenomegaly, normal bowel sounds, no guarding or rigidity. SPINE: No scoliosis or deformity SKIN: No rashes CENTRAL NERVOUS SYSTEM: No focal deficits, tone is normal in all 4 extremities. EXTREMITIES: There is no peripheral edema. No clubbing, no cyanosis. Peripheral pulses are intact. - Labs CBC & Chem 7: 11/05/20 08:04 11/05/20 08:04 Labs: Abnormal Lab Results - Last 24 Hours (Table) 11/04/20 11/05/20 11/05/20 Range/Units 14:32 08:04 08:04 WBC 11.8 H (3.8-10.6) k/uL Neutrophils # 9.0 H (1.3-7.7) k/uL APTT (22.0-30.0) sec Sodium 136 L (137-145) mmol/L BUN 8 L (9-20) mg/dL Glucose 114 H (74-99) mg/dL Troponin I 4.750 H* (0.000-0.034) ng/mL Triglycerides 179 H (<150) mg/dL Cholesterol 236 H (<200) mg/dL LDL Cholesterol, Calc 137 H (0-99) mg/dL HDL Cholesterol 63 H (40-60) mg/dL 11/05/20 Range/Units 08:04 WBC (3.8-10.6) k/uL Neutrophils # (1.3-7.7) k/uL APTT 33.6 H (22.0-30.0) sec Sodium (137-145) mmol/L BUN (9-20) mg/dL Glucose (74-99) mg/dL Troponin I (0.000-0.034) ng/mL Triglycerides (<150) mg/dL Cholesterol (<200) mg/dL LDL Cholesterol, Calc (0-99) mg/dL HDL Cholesterol (40-60) mg/dL Microbiology - Last 24 Hours (Table) 11/04/20 08:59 Blood Culture - Preliminary Blood No Growth after 24 hours 11/04/20 16:00 Gram Stain - Preliminary Sputum Sputum Culture - Preliminary Assessment and Plan Assessment: 1 Chest pain of unclear etiology. Pulmonary embolism ruled out. Severe cardiomyopathy with ejection fraction less than 20%. Ischemic versus alcoholic. 2 Troponin leak, tachycardia, bilateral pleural effusions, mild central alveolar edema. 3 Thoracic adenopathy of unclear etiology, presumed reactive, possible acute infectious process versus viral bronchiolitis, sarcoidosis. 4 Recent symptoms of upper respiratory infection 5 Mild leukocytosis 6 Elevated d-dimer. CT angiogram ruled out pulmonary embolism. Negative DVT Doppler. 7 Daily alcohol use 8 Marijuana use Plan: The patient was seen and evaluated by Dr. Burrell Chest x-ray, echocardiogram and labs reviewed Discontinue antibiotics Continue heparin drip Possible ischemic versus alcoholic cardiomyopathy Continue IV Lasix, Aldactone, Adan catheter, beta blockers Continue CIWA protocol We will continue to follow and make further recommendations based on his clinical status I, the cosigning physician, performed a history & physical examination of the patient. Lungs sounds with faint crackles in the posterior bases. Maintaining good O2 saturations in the 90s on room air. I discussed the assessment and plan of care with my nurse practitioner, Dagmar Ramos. I attest to the above note as dictated by her.
[2020-11-05] MEDS: HEPARIN SOD,PORK IN 0.45% NACL 25,000 UNIT in 0.45% NACL 1 250ML.BAG IV SCH (16:52)
[2020-11-06] MEDS: HEPARIN SOD,PORK IN 0.45% NACL 25,000 UNIT in 0.45% NACL 1 250ML.BAG IV SCH (00:17)
[2020-11-06] MEDS: HEPARIN SODIUM,PORCINE 5,000 UNIT/ML 1 ML VIAL IV PRN (00:20)
[2020-11-06] MEDS: THIAMINE 100 MG TAB PO SCH ×2 (06:50→17:33)
[2020-11-06] MEDS ORDERED: ALPRAZolam 0.25 MG TAB PO PRN (07:14)
[2020-11-06] MEDS ORDERED: ALPRAZolam 0.5 MG TAB PO PRN (07:14)
[2020-11-06] MEDS ORDERED: NITROGLYCERIN SL TABS 0.4 MG TAB SUBLINGUAL PRN (07:14)
[2020-11-06] MEDS: DEXTROSE 5%-0.45% NACL 1,000 ML IV SCH ×2 (07:58→20:27)
[2020-11-06] MEDS: PANTOPRAZOLE 40 MG/10 ML VIAL IVP SCH (07:59)
[2020-11-06] MEDS: lisinopriL 5 MG TAB PO SCH ×2 (07:59→20:26)
[2020-11-06] MEDS: ASPIRIN 81 MG PO SCH (07:59)
[2020-11-06] MEDS: ATORVASTATIN 80 MG TAB PO SCH (07:59)
[2020-11-06] MEDS: METOPROLOL TARTRATE 25 MG TAB PO SCH ×3 (07:59→20:26)
[2020-11-06] MEDS: FUROSEMIDE 10 MG/ML 4 ML VIAL IV SCH (07:59)
[2020-11-06] MEDS: SPIRONOLACTONE 25 MG TAB PO SCH (07:59)
[2020-11-06 08:03] LABS: African American GFR (CKD) >90 (>60 ml/min/1.73 sqM); Anion Gap 14 mmol/L; Blood Urea Nitrogen 14 mg/dL (9-20); Calcium 9.3 mg/dL (8.4-10.2); Carbon Dioxide 19 mmol/L (22-30); Chloride 102 mmol/L (98-107); Glucose 102 mg/dL (74-99); Non-African American GFR(CKD) 84 (>60 ml/min/1.73 sqM); Sodium 135 mmol/L (137-145)
[2020-11-06 08:04] LABS: Potassium 4.6 mmol/L (3.5-5.1)
[2020-11-06 08:35] LABS: Basophils # (A) 0.2 k/uL (0-0.2); Basophils % (A) 2 %; Eosinophils # (A) 0.2 k/uL (0-0.7); Eosinophils % (A) 2 %; HCT 54.5 % (39.0-53.0); Lymphocytes % (A) 23 %; MCHC 33.1 g/dL (31.0-37.0); MCV 96.7 fL (80.0-100.0); Monocytes # (A) 0.9 k/uL (0-1.0); Monocytes % (A) 10 %; Neutrophils # (A) 5.4 k/uL (1.3-7.7); Neutrophils % (A) 61 %; Platelet Count 307 k/uL (150-450); RBC 5.63 m/uL (4.30-5.90); RDW 12.5 % (11.5-15.5); WBC 8.9 k/uL (3.8-10.6)
[2020-11-06] MEDS: ACETAMINOPHEN TAB 325 MG TAB PO PRN ×2 (09:51→17:43)
--- NOTE | 2020-11-06 10:55 | P.PN ---
Subjective Progress Note Date: 11/06/20 Patient is doing fairly well right now. He had an episode of abdominal cramps with diarrhea this morning. No chest pain otherwise. He is laying comfortably in bed. No acute events overnight reported by nursing staff. Objective - Vital Signs Vital signs: Vital Signs Temp 97.6 F 11/06/20 07:56 Pulse 138 H 11/06/20 07:56 Resp 18 11/06/20 08:00 BP 118/83 11/06/20 07:56 Pulse Ox 99 11/06/20 07:56 Intake & Output 11/05/20 11/06/20 11/06/20 18:59 06:59 18:59 Intake Total 3030.146 6220.043 240 Balance 5561.080 9389.043 240 Intake: Intake, IV Titration 172.288 129.043 Amount Heparin Sod,Pork in 0.45% 172.288 129.043 NaCl 25,000 unit In 0.45 % NaCl 1 250ml.bag @ 9.19 UNITS/KG/HR 10.004 mls/ hr IV .Q24H [facility] Rx#: [id number] Oral 1500 1425 240 Other: Voiding Method Toilet Toilet Toilet # Voids 3 2 - Exam General: The patient is awake and alert, in no distress Eye: there is normal conjunctiva bilaterally. Neck: The neck is supple, there is no JVD. Cardiovascular: Normal S1-S2, no S3-S4, no murmurs. Respiratory: Lungs clear to auscultation bilaterally Gastrointestinal: Abdomen is soft, nontender Musculoskeletal: There is no pedal edema. Neurological:. Speech is normal. Skin: Skin is warm and dry - Labs CBC & Chem 7: 11/06/20 07:01 11/06/20 07:01 Labs: Abnormal Lab Results - Last 24 Hours (Table) 11/05/20 11/05/20 11/06/20 Range/Units 16:44 22:20 07:01 Hgb 18.0 H (13.0-17.5) gm/dL Hct 54.5 H (39.0-53.0) % APTT 34.8 H 41.3 H (22.0-30.0) sec Sodium (137-145) mmol/L Carbon Dioxide (22-30) mmol/L Glucose (74-99) mg/dL 11/06/20 11/06/20 Range/Units 07:01 07:01 Hgb (13.0-17.5) gm/dL Hct (39.0-53.0) % APTT 63.9 H (22.0-30.0) sec Sodium 135 L (137-145) mmol/L Carbon Dioxide 19 L (22-30) mmol/L Glucose 102 H (74-99) mg/dL Microbiology - Last 24 Hours (Table) 11/04/20 08:59 Blood Culture - Preliminary Blood No Growth after 24 hours 11/04/20 16:00 Gram Stain - Preliminary Sputum Sputum Culture - Preliminary Assessment and Plan Assessment: This is a 25-year-old male with past medical history significant for heavy alcohol abuse who presented to the emergency room with chest pain. Patient was evaluated in the ER and admitted to the hospital for further management of his medical problems noted below. 1. Non-ST elevation [place], treated with optimal medical management and IV heparin. Currently chest pain-free. Troponin peaked at 4.7. Cardiology following closely. Continue aspirin daily. Plan for left heart catheterization tomorrow 2. Severe cardiomyopathy possibly ischemic versus alcohol-induced. Echocardiogram showed EF of 25%. Patient started on metoprolol, Aldactone, and lisinopril. 3. Acute systolic heart failure exacerbation, started on IV Lasix by cardio logy. 4. Acute bronchitis, C3 days course of Augmentin. Antibiotic discontinued by pulmonology. COVID-19 negative in the ER 5. Sepsis without septic shock, lactic acid elevated on presentation now resolved. Blood culture negative to date 6. Elevated d-dimer, CT angiogram in the ER negative for PE though was a suboptimal study. PE is less likely clinically. ultrasound of the lower extrem ities negative for DVT 7. Alcohol withdrawal, resolved. Patient started on Valium first 48 hours which was discontinued right now. [facility] protocol as needed 8. Alcohol abuse: Counseled extensively to quit. Social work consult to help with resources. Started on vitamins. 9. Marijuana smoking, counseled to quit 10. DVT prophylaxis currently on IV heparin drip Today, I reviewed his medication list and lab work results. scheduled for left heart catheterization in the morning Continue telemetry monitoring. Repeat lab work in the morning.
--- NOTE | 2020-11-06 11:07 | P.PN ---
Subjective Progress Note Date: 11/06/20 This is a 25-year-old gentleman who was seen in consultation by Dr. Cuba. He presented to the hospital with symptoms of chest discomfort that woke him from sleep. He also noted that his heart rate was quite fast. He came to the emergency room for further evaluation. Over the past 10-14 days patient has been complaining of progressive dyspnea as well as associated sweating and cough with no documented fever. His coronary risk factors are negative for documented hypertension, diabetes. He has no hyperlipidemia, he does not smoke tobacco but he does smoke marijuana on a daily basis and drinks at least a pint of alcohol daily as well as caffeine. His initial EKG on presentation here showed a sinus tachycardia. His chest x-ray showed mild to moderate central perihilar bronchial cuffing consistent with reactive airway disease, possibly viral bronchiolitis. CTA ruled out a pulmonary embolism but did show tiny bilateral pleural effusions and several areas of groundglass O pace that he, wall thickening, and thoracic adenopathy. Largest measuring 2.9 x 1.97 cm in the subcarinal lymph node. He had an echocardiogram with Doppler study performed which revealed an ejection fraction of less than 20%, mild to moderate MR, [id number] TR and moderate pulmonary hypertension, no evidence of pericardial effusion. Bilateral venous duplex study negative for DVT in either lower extremity. Repeat chest x-ray was performed, pleural effusions were not noted, interstitial edema changes appeared slightly improved. Patient was complaining of some intermittent abdominal discomfort this morning. No diarrhea. Blood pressure 120/80, heart rate in the 120s, 95% on room air. Whit e blood cell count 11.8, TRAE globin 17.3, platelet count 324. Sodium 136, potassium 4.0, BUN 8, creatinine 1.1. Troponins 0.015, 0.358, 4.7. Cholesterol 236, triglycerides 179, LDL 137, HDL 63. 11/06/2020 Patient was seen and examined this morning, feeling significantly better overall. Breathing is stable, he denies any chest discomfort. His weight is down 4 kg from yesterday. He continues to be tachycardic this morning with a heart rate in the 1 teens to 120s. Blood pressure 118/80 to 99% on room air. White blood cell count 8.9, hemoglobin 18, platelet count 307. Sodium 135, potassium 4.6, BUN 14, creatinine 1.2. Objective - Vital Signs Vital signs: Vital Signs Temp 97.6 F 11/06/20 07:56 Pulse 138 H 11/06/20 07:56 Resp 18 11/06/20 08:00 BP 118/83 11/06/20 07:56 Pulse Ox 99 11/06/20 07:56 Intake & Output 11/05/20 11/06/20 11/06/20 18:59 06:59 18:59 Intake Total 1068.932 1828.043 240 Balance 4133.690 4590.043 240 Intake: Intake, IV Titration 172.288 129.043 Amount Heparin Sod,Pork in 0.45% 172.288 129.043 NaCl 25,000 unit In 0.45 % NaCl 1 250ml.bag @ 9.19 UNITS/KG/HR 10.004 mls/ hr IV .Q24H [facility] Rx#: [id number] Oral 1500 1425 240 Other: Voiding Method Toilet Toilet Toilet # Voids 3 2 - Exam GENERAL EXAM: Alert, active, pleasant 25-year-old gentleman, on room air, comfortable in no apparent distress. HEAD: Normocephalic. EYES: Normal reaction of pupils, equal size. NOSE: Clear with pink turbinates. THROAT: No erythema or exudates. NECK: No masses, no JVD. CHEST: No chest wall deformity. LUNGS: Equal air entry with faint crackles in the posterior bases. CVS: S1 and S2 normal with systolic murmur , tachycardic, regular. ABDOMEN: No hepatosplenomegaly, normal bowel sounds, no guarding or rigidity. SPINE: No scoliosis or deformity SKIN: No rashes CENTRAL NERVOUS SYSTEM: No focal deficits, tone is normal in all 4 extremities. EXTREMITIES: There is no peripheral edema. No clubbing, no cyanosis. Peripheral pulses are intact. - Labs CBC & Chem 7: 11/06/20 07:01 11/06/20 07:01 Labs: Abnormal Lab Results - Last 24 Hours (Table) 11/05/20 11/05/20 11/06/20 Range/Units 16:44 22:20 07:01 Hgb 18.0 H (13.0-17.5) gm/dL Hct 54.5 H (39.0-53.0) % APTT 34.8 H 41.3 H (22.0-30.0) sec Sodium (137-145) mmol/L Carbon Dioxide (22-30) mmol/L Glucose (74-99) mg/dL 11/06/20 11/06/20 Range/Units 07:01 07:01 Hgb (13.0-17.5) gm/dL Hct (39.0-53.0) % APTT 63.9 H (22.0-30.0) sec Sodium 135 L (137-145) mmol/L Carbon Dioxide 19 L (22-30) mmol/L Glucose 102 H (74-99) mg/dL Microbiology - Last 24 Hours (Table) 11/04/20 08:59 Blood Culture - Preliminary Blood No Growth after 24 hours 11/04/20 16:00 Gram Stain - Preliminary Sputum Sputum Culture - Preliminary Assessment and Plan Plan: Assessment and plan #1 chest discomfort, abnormality in troponins suggestive of possible acute coronary syndrome. Echocardiogram with Doppler study reveals an ejection fraction of less than 20% #2 cardiomyopathy, could be ischemic in nature, could also be secondary to EtOH abuse, patient drinks a pint of alcohol a day. #3 sinus tachycardia, PE ruled out. #4 marijuana use #5 EtOH abuse, patient drinks a pint of alcohol a day. On [facility] protocol #6 abnormal chest x-ray, thoracic adenopathy, possible acute infectious process in a patient with a recent upper respiratory infection, COVID negative Plan We will continue the patient on a baby aspirin as well as Lipitor, Discontinue IV heparin, MARYLOU inhibitor, increase dose of beta nancy for more optimal heart rate control, discontinue IV Lasix and keep the patient on oral Lasix 20 mg daily, monitoring intake and output along with daily weights and daily lytes BUN and creatinine. Continue Aldactone. Patient will require a cardiac catheterization to rule out underlying coronary artery disease, this will be performed tomorrow by Dr. Cuba. Further recommendations to follow. DNP note has been reviewed, I agree with a documented findings and plan of care. Patient was seen and examined.
--- NOTE | 2020-11-06 12:49 | P.PN ---
Subjective Progress Note Date: 11/06/20 Principal diagnosis: Cardiomyopathy A very pleasant 25-year-old male patient with no current primary care provider. No significant medical history. He does drink a pint of liquor on a daily basis. He also smokes marijuana. He denied any other drug use. He woke up early this morning with significant chest pain in the center of his chest. He had been fighting an upper respiratory infection earlier in the week. Hemodynamically emergency room secondary to the chest pain. Chest x-ray revealed mild to moderate central perihilar bronchial cuffing consistent with reactive airway disease possibly viral bronchiolitis. CT angiogram ruled out pulmonary embolism. There is a tiny bilateral pleural effusions. Subtle areas of groundglass opacity and some moderate peribronchial wall thickening and thoracic adenopathy. Largest measuring 2.9 x 1.9 cm in the subcarinal lymph node. White count 13.6. Hemoglobin 17.4. D-dimer 1.83. Sodium 138. Potassium 4.4. Glucose 146. Initial lactic 2.2. Currently 1.6. LDH 795. Troponin 0.015, 0.358. ProBNP 1010. Serum alcohol less than 10. Coronavirus not detected. Doppler of the lower extremities pending. Echocardiogram pending. He's been initiated on Augmentin, IV diuretics, Aldactone, adan inhibitors, beta blockers per cardiology. He's also been placed on the CIWA protocol. He is seen today in consultation on the selective care unit. He is currently sitting up in bed. Awake and alert in no acute distress. Maintaining O2 saturations in the upper 90s on room air. He remains tachycardic in the 130s. Somewhat hypertensive. Afebrile. Heparin for DVT prophylaxis. The patient is seen today 11/05/2020 in follow-up on the selective care unit. He is currently sitting up in bed. Awake and alert in no acute distress. He states he is breathing quite a bit easier today compared to yesterday. Currently denies any chest pain. No palpitations, dizziness or lightheadedness. Blood and sputum cultures are pending. White count 11.8. Hemoglobin 17.3. Sodium 136. Potassium 4.0. Creatinine 1.11. Peak troponin 4.75. Total cholesterol 236, LDL 137, HDL 63, triglycerides 179. Sed rate 4. Chest x-ray r eveals improved interstitial edema. Dopplers of lower extremity negative for DVT. Echocardiogram revealed severely impaired left ventricular systolic function with ejection fraction less than 20%. The patient is seen today 11/06/2020 in follow-up on the selective care unit. He's been up ambulating in his room. Awake and alert in no acute distress. He is breathing quite a bit better. Nearly back to his baseline. No chest pain or palpitations. No cough or congestion. White count 8.9. Hemoglobin 8.0. Sodium 135. Potassium 4.6. Creatinine 1.20. He remains on IV diuretics. Blood and sputum cultures reveal no growth. Plan is for cardiac catheterization in a.m. Objective - Vital Signs Vital signs: Vital Signs Temp 97.6 F 11/06/20 11:36 Pulse 119 H 11/06/20 11:36 Resp 18 11/06/20 11:36 BP 101/48 11/06/20 11:36 Pulse Ox 97 11/06/20 11:36 Intake & Output 11/05/20 11/06/20 11/06/20 18:59 06:59 18:59 Intake Total 9447.201 5531.043 240 Balance 4552.686 9859.043 240 Intake: Intake, IV Titration 172.288 129.043 Amount Heparin Sod,Pork in 0.45% 172.288 129.043 NaCl 25,000 unit In 0.45 % NaCl 1 250ml.bag @ 9.19 UNITS/KG/HR 10.004 mls/ hr IV .Q24H [facility] Rx#: [id number] Oral 1500 1425 240 Other: Voiding Method Toilet Toilet Toilet # Voids 3 2 - Exam GENERAL EXAM: Alert, active, pleasant 25-year-old gentleman, on room air, comfortable in no apparent distress. HEAD: Normocephalic. EYES: Normal reaction of pupils, equal size. NOSE: Clear with pink turbinates. THROAT: No erythema or exudates. NECK: No masses, no JVD. CHEST: No chest wall deformity. LUNGS: Equal air entry with faint crackles in the posterior bases. CVS: S1 and S2 normal with audible rub, tachycardic, regular. ABDOMEN: No hepatosplenomegaly, normal bowel sounds, no guarding or rigidity. SPINE: No scoliosis or deformity SKIN: No rashes CENTRAL NERVOUS SYSTEM: No focal deficits, tone is normal in all 4 extremities. EXTREMITIES: There is no peripheral edema. No clubbing, no cyanosis. Peripheral pulses are intact. - Labs CBC & Chem 7: 11/06/20 07:01 11/06/20 07:01 Labs: Abnormal Lab Results - Last 24 Hours (Table) 11/05/20 11/05/20 11/06/20 Range/Units 16:44 22:20 07:01 Hgb 18.0 H (13.0-17.5) gm/dL Hct 54.5 H (39.0-53.0) % APTT 34.8 H 41.3 H (22.0-30.0) sec Sodium (137-145) mmol/L Carbon Dioxide (22-30) mmol/L Glucose (74-99) mg/dL 11/06/20 11/06/20 Range/Units 07:01 07:01 Hgb (13.0-17.5) gm/dL Hct (39.0-53.0) % APTT 63.9 H (22.0-30.0) sec Sodium 135 L (137-145) mmol/L Carbon Dioxide 19 L (22-30) mmol/L Glucose 102 H (74-99) mg/dL Microbiology - Last 24 Hours (Table) 11/04/20 08:59 Blood Culture - Preliminary Blood No Growth after 48 hours 11/04/20 16:00 Gram Stain - Preliminary Sputum Sputum Culture - Preliminary Assessment and Plan Assessment: 1 Chest pain of unclear etiology. Pulmonary embolism ruled out. Severe cardio myopathy with ejection fraction less than 20%. Ischemic versus alcoholic. 2 Troponin leak, tachycardia, bilateral pleural effusions, mild central alveolar edema. 3 Thoracic adenopathy of unclear etiology, presumed reactive, possible acute infectious process versus viral bronchiolitis, sarcoidosis. 4 Recent symptoms of upper respiratory infection 5 Mild leukocytosis 6 Elevated d-dimer. CT angiogram ruled out pulmonary embolism. Negative DVT Doppler. 7 Daily alcohol use 8 Marijuana use Plan: The patient was seen and evaluated by Dr. Burrell Plan is for cardiac catheterization a.m. Continue IV Lasix, Aldactone, Adan catheter, beta blockers Continue CIWA protocol Educated regarding the importance of complete alcohol cessation. We will continue to follow and make further recommendations based on his clinical status I, the cosigning physician, performed a history & physical examination of the patient. Lungs sounds with faint crackles in the posterior bases. Maintaining good O2 saturations in the 90s on room air. I discussed the assessment and plan of care with my nurse practitioner, Dagmar Ramos. I attest to the above note as dictated by her.
[2020-11-06] MEDS: guaiFENesin SYRUP 100MG/5ML 200 MG/10 ML CUP PO PRN (17:43)
[2020-11-07] MEDS ORDERED: SODIUM CHLORIDE 0.9% 1,000 ML in EMPTY BAG 1 BAG IV ONE (05:00)
[2020-11-07] MEDS ORDERED: ATORVASTATIN 80 MG TAB PO PRN (05:00)
[2020-11-07] MEDS ORDERED: ASPIRIN 325 MG TAB PO PRN (05:00)
[2020-11-07] MEDS: lisinopriL 5 MG TAB PO SCH ×2 (05:14→20:50)
[2020-11-07] MEDS: METOPROLOL TARTRATE 25 MG TAB PO SCH (05:14)
[2020-11-07] MEDS: PANTOPRAZOLE 40 MG/10 ML VIAL IVP SCH (05:14)
[2020-11-07] MEDS: THIAMINE 100 MG TAB PO SCH ×2 (05:14→17:57)
[2020-11-07] MEDS: SPIRONOLACTONE 25 MG TAB PO SCH (05:14)
[2020-11-07] MEDS: ATORVASTATIN 80 MG TAB PO SCH (05:15)
[2020-11-07] MEDS: ASPIRIN 81 MG PO SCH (05:15)
[2020-11-07] MEDS ORDERED: HEPARIN SODIUM,PORCINE 2,500 UNIT in SODIUM CHLORIDE 0.9% 250 ML IRRIGATION PRN (07:00)
[2020-11-07] MEDS ORDERED: HEPARIN SODIUM,PORCINE 10,000 UNIT in SODIUM CHLORIDE 0.9% 1,000 ML IRRIGATION PRN (07:00)
[2020-11-07] MEDS ORDERED: IV FLUID CONTINUATION 1,000 ML IV ONE (07:33)
[2020-11-07] MEDS ORDERED: HEPARIN SODIUM 1,000 UN/ML (10ML VL) ONE (07:40)
[2020-11-07] MEDS ORDERED: VERAPAMIL 2.5 MG/ML 2 ML AMP ONE (07:40)
[2020-11-07] MEDS ORDERED: LIDOCAINE 1% INJ 10MG/ML (20 ML MDV) ONE (07:40)
[2020-11-07] MEDS ORDERED: fentaNYL (PF) 50 MCG/ML 2 ML AMP ONE (07:40)
[2020-11-07] MEDS ORDERED: fentaNYL (PF) 50 MCG/ML 2 ML AMP IV ONE (07:48)
[2020-11-07] MEDS ORDERED: LIDOCAINE 1% INJ 10MG/ML (20 ML MDV) SQ ONE (07:49)
[2020-11-07] MEDS ORDERED: MIDAZOLAM 2 MG/2 ML VIAL IV ONE (07:50)
[2020-11-07] MEDS ORDERED: VERAPAMIL SYRINGE (5 MG/10 ML) INTRAARTER ONE (07:54)
[2020-11-07] MEDS ORDERED: HEPARIN SODIUM 1,000 UN/ML (10ML VL) IV ONE (07:58)
[2020-11-07 08:08] LABS: Basophils # (A) 0.1 k/uL (0-0.2); Basophils % (A) 1 %; Eosinophils # (A) 0.2 k/uL (0-0.7); Eosinophils % (A) 2 %; HCT 50.4 % (39.0-53.0); HGB 17.5 gm/dL (13.0-17.5); Lymphocytes # (A) 1.3 k/uL (1.0-4.8); Lymphocytes % (A) 15 %; MCH 32.6 pg (25.0-35.0); MCHC 34.7 g/dL (31.0-37.0); Mean Platelet Volume 7.1; Monocytes # (A) 0.7 k/uL (0-1.0); Monocytes % (A) 8 %; Neutrophils # (A) 6.2 k/uL (1.3-7.7); Neutrophils % (A) 72 %; Platelet Count 330 k/uL (150-450); RBC 5.37 m/uL (4.30-5.90); RDW 12.3 % (11.5-15.5); WBC 8.6 k/uL (3.8-10.6)
[2020-11-07] MEDS ORDERED: IOPAMIDOL-370 125ML BTL INJ ONE (08:11)
[2020-11-07] MEDS ORDERED: RX INFO: IV CONTRAST WAS GIVEN 1 EACH MISC MISCELLANE PRN (08:20)
[2020-11-07 08:22] LABS: Calcium 9.4 mg/dL (8.4-10.2); Potassium 4.6 mmol/L (3.5-5.1)
[2020-11-07] MEDS ORDERED: SODIUM CHLORIDE 0.9% 1,000 ML IV SCH (08:30)
[2020-11-07] MEDS ORDERED: ATORVASTATIN 40 MG TAB PO SCH (09:00)
[2020-11-07] MEDS: FUROSEMIDE 20 MG TAB PO SCH ×2 (09:59→17:57)
[2020-11-07] MEDS: METOPROLOL SUCCINATE (ER) 50 MG TAB.ER.24H PO SCH (09:59)
--- NOTE | 2020-11-07 10:28 | CC ---
CARDIAC CATHETERIZATION REPORT Mr. Justin is a 25-year-old male with known history of chronic alcohol intake who presented with symptoms of progressive dyspnea for 2 weeks and chest discomfort. He had mild troponin elevation. His echocardiogram showed severely impaired systolic function. In view of that, recommendation was made regarding cardiac catheterization. The procedure as well as the risks and the complications were discussed with the patient who is in full understanding and agreement. PROCEDURE: Patient was brought to the slabber light in a fasting semi-sedated state after receiving fentanyl and Benadryl and achieving moderate conscious sedated state. Using Xylocaine anesthesia and Seldinger technique, a 6-Mozambican sheath was introduced in the right radial artery. Selective right and left coronary angiography performed using 5-Mozambican 3.5 bend right and left Amanda catheter. Multiple views of the coronary artery including hemiaxial views were obtained. Following that 5-Mozambican tight pigtail catheter was introduced in the left ventricle and a 30-degree HERMAN view of the left ventricle was obtained. Following that, catheter and sheath were removed. Hemostasis was obtained with deployment of a TR band. There was no immediate complication. The patient was returned to his room in stable condition. Of note, the patient received 5000 units of intravenous heparin as well as intra-arterial verapamil. FINDINGS: LEFT MAIN: This is a short size vessel, bifurcating into left circumflex, left anterior descending artery. Left main coronary artery has no evidence of high-grade stenosis. LEFT ANTERIOR DESCENDING ARTERY: This is a large-sized vessel reaching to the apex with a wraparound apex segment giving rise to 2 diagonal branch of moderate caliber. The anterior descending artery as well as branches have no evidence of obstructive coronary artery disease. LEFT CIRCUMFLEX: This is a large nondominant vessel giving rise to a large obtuse marginal branch. The left circumflex as well as branches have no evidence of obstructive coronary artery disease. RIGHT CORONARY ARTERY: This is a large dominant vessel bifurcating into PDA and posterolateral segment and branches. The right PDA reaches toward the inferoapical wall. The right coronary artery as well as branches have no evidence of obstructive coronary artery disease. LEFT VENTRICULOGRAM: Left ventriculogram is performed in 30-degree HERMAN view and revealed a dilated left ventricle, severe global hypokinesis, the estimated ejection fraction is 10% to 15%. HEMODYNAMICS: There was no gradient across the aortic valve. The left ventricle end-diastolic pressure was 20-25 mmHg. CONCLUSION: 1. Normal coronary artery. 2. Severely impaired left ventricular systolic function. RECOMMENDATION: In view of finding anatomy, those findings are consistent with nonischemic cardiomyopathy, possible alcoholic cardiomyopathy. I have discussed with the patient the importance of alcohol cessation. In the meantime, he will continue on MARYLOU inhibitor, beta nancy, and spironolactone and depending on his progress, further recommendation will be made. Those findings and recommendation were discussed with the patient and his family and they are in full understanding and agreement. Duration of sedation is 24 minutes. MMODL / IJN: [id number] /
--- NOTE | 2020-11-07 10:56 | P.PN ---
Subjective Progress Note Date: 11/07/20 Patient is doing well today. He had a left heart catheterization earlier. He denies any chest pain at this time. Objective - Vital Signs Vital signs: Vital Signs Temp 98.4 F 11/07/20 03:35 Pulse 98 11/07/20 10:06 Resp 16 11/07/20 10:06 BP 105/72 11/07/20 10:06 Pulse Ox 96 11/07/20 10:06 Intake & Output 11/06/20 11/07/20 11/07/20 18:59 06:59 18:59 Intake Total 1020 240 390 Balance 1020 240 390 Weight 108 kg Intake: IV 150 Oral 1020 240 240 Other: Voiding Method Toilet # Voids 1 1 - Exam General: The patient is awake and alert, in no distress Eye: there is normal conjunctiva bilaterally. Neck: The neck is supple, there is no JVD. Cardiovascular: Normal S1-S2, no S3-S4, no murmurs. Respiratory: Lungs clear to auscultation bilaterally Gastrointestinal: Abdomen is soft, nontender Musculoskeletal: There is no pedal edema. Neurological:. Speech is normal. Skin: Skin is warm and dry - Labs CBC & Chem 7: 11/07/20 07:13 11/07/20 07:13 Labs: Abnormal Lab Results - Last 24 Hours (Table) 11/07/20 Range/Units 07:13 Sodium 135 L (137-145) mmol/L Creatinine 1.29 H (0.66-1.25) mg/dL Microbiology - Last 24 Hours (Table) 11/04/20 16:00 Gram Stain - Final Sputum Sputum Culture - Final 11/04/20 08:59 Blood Culture - Preliminary Blood No Growth after 48 hours Assessment and Plan Assessment: This is a 25-year-old male with past medical history significant for heavy alcohol abuse who presented to the emergency room with chest pain. Patient was evaluated in the ER and admitted to the hospital for further management of his medical problems noted below. 1. Non-ST elevation SD, treated with optimal medical management and IV heparin. Currently chest pain-free. Troponin peaked at 4.7. Seen and evaluated by cardiology. Left heart catheterization showed normal coronary arteries. 2. Severe cardiomyopathy most likely alcohol induced. Echocardiogram showed EF of 25%. Patient started on metoprolol, Aldactone, Lasix, and lisinopril. 3. Acute systolic heart failure exacerbation, started on IV Lasix with good response. Transitioned to oral Lasix today. 4. Acute bronchitis, received 3 days course of Augmentin. Antibiotic discontinued by pulmonology. COVID-19 negative in the ER 5. Sepsis without septic shock on presentation, lactic acid elevated on presentation now resolved. Blood culture negative to date 6. Elevated d-dimer, CT angiogram in the ER negative for PE though was a suboptimal study. PE is less likely clinically. ultrasound of the lower extremities negative for DVT 7. Alcohol withdrawal, resolved. Patient started on Valium first 48 hours which was discontinued right now. [facility] protocol as needed 8. Alcohol abuse: Counseled extensively to quit. Social work consult to help with resources. Started on vitamins. 9. Marijuana smoking, counseled to quit 10. DVT prophylaxis currently on IV heparin drip Today, I reviewed his medication list and lab work results. Continue telemetry monitoring. Repeat lab work in the morning. Discharge home tomorrow when cleared by cardiology
--- NOTE | 2020-11-07 14:30 | P.PN ---
Subjective Progress Note Date: 11/07/20 Principal diagnosis: Cardiomyopathy A very pleasant 25-year-old male patient with no current primary care provider. No significant medical history. He does drink a pint of liquor on a daily basis. He also smokes marijuana. He denied any other drug use. He woke up early this morning with significant chest pain in the center of his chest. He had been fighting an upper respiratory infection earlier in the week. Hemodynamically emergency room secondary to the chest pain. Chest x-ray revealed mild to moderate central perihilar bronchial cuffing consistent with reactive airway disease possibly viral bronchiolitis. CT angiogram ruled out pulmonary embolism. There is a tiny bilateral pleural effusions. Subtle areas of groundglass opacity and some moderate peribronchial wall thickening and thoracic adenopathy. Largest measuring 2.9 x 1.9 cm in the subcarinal lymph n ode. White count 13.6. Hemoglobin 17.4. D-dimer 1.83. Sodium 138. Potassium 4.4. Glucose 146. Initial lactic 2.2. Currently 1.6. LDH 795. Troponin 0.015, 0.358. ProBNP 1010. Serum alcohol less than 10. Coronavirus not detected. Doppler of the lower extremities pending. Echocardiogram pending. He's been initiated on Augmentin, IV diuretics, Aldactone, adan inhibitors, beta blockers per cardiology. He's also been placed on the CIWA protocol. He is seen today in consultation on the selective care unit. He is currently sitting up in bed. Awake and alert in no acute distress. Maintaining O2 saturations in the upper 90s on room air. He remains tachycardic in the 130s. Somewhat hypertensive. Afebrile. Heparin for DVT prophylaxis. The patient is seen today 11/05/2020 in follow-up on the selective care unit. He is currently sitting up in bed. Awake and alert in no acute distress. He states he is breathing quite a bit easier today compared to yesterday. Currently denies any chest pain. No palpitations, dizziness or lightheadedness. Blood and sputum cultures are pending. White count 11.8. Hemoglobin 17.3. Sodium 136. Potassium 4.0. Creatinine 1.11. Peak troponin 4.75. Total cholesterol 236, LDL 137, HDL 63, triglycerides 179. Sed rate 4. Chest x-ray reveals improved interstitial edema. Dopplers of lower extremity negative for DVT. Echocardiogram revealed severely impaired left ventricular systolic function with ejection fraction less than 20%. The patient is seen today 11/06/2020 in follow-up on the selective care unit. He's been up ambulating in his room. Awake and alert in no acute distress. He is breathing quite a bit better. Nearly back to his baseline. No chest pain or palpitations. No cough or congestion. White count 8.9. Hemoglobin 8.0. Sodium 135. Potassium 4.6. Creatinine 1.20. He remains on IV diuretics. Blood and sputum cultures reveal no growth. Plan is for cardiac catheterization in a.m. On 11/07/2020 patient seen in follow-up on selective care, he is calm and comfortable, sitting up in a chair, on room air, pulse ox of 96%, hemodynamically stable, heart rate is 82-105 BPM, no altered mentation, blood pr essure stable, no fever or chills, no shortness of breath. Patient underwent heart catheterization showing normal coronary artery and severely impaired Left ventricular systolic function with EF of 10-15%. No complaints of chest pain. Objective - Vital Signs Vital signs: Vital Signs Temp 98.4 F 11/07/20 03:35 Pulse 98 11/07/20 11:28 Resp 16 11/07/20 10:06 BP 105/70 11/07/20 11:28 Pulse Ox 96 11/07/20 11:28 Intake & Output 11/06/20 11/07/20 11/07/20 18:59 06:59 18:59 Intake Total 1020 240 630 Balance 1020 240 630 Weight 108 kg Intake: IV 150 Oral 1020 240 480 Other: Voiding Method Toilet # Voids 1 1 - Exam GENERAL EXAM: Alert, very pleasant, 25-year-old white male, on room air with pulse ox of 96% comfortable in no apparent distress. HEAD: Normocephalic/atraumatic. EYES: Normal reaction of pupils, equal size. Conjunctiva pink, sclera white. NOSE: Clear with pink turbinates. THROAT: No erythema or exudates. NECK: No masses, no JVD, no thyroid enlargement, no adenopathy. CHEST: No chest wall deformity. Symmetrical expansion. LUNGS: Equal air entry with no crackles, wheeze, rhonchi or dullness. CVS: Regular rate and rhythm, normal S1 and S2, no gallops, no murmurs, no rubs ABDOMEN: Soft, nontender. No hepatosplenomegaly, normal bowel sounds, no guarding or rigidity. EXTREMITIES: No clubbing, no edema, no cyanosis, 2+ pulses and upper and lower extremities. MUSCULOSKELETAL: Muscle strength and tone normal. SPINE: No scoliosis or deformity SKIN: No rashes CENTRAL NERVOUS SYSTEM: Alert and oriented -3. No focal deficits, tone is normal in all 4 extremities. PSYCHIATRIC: Alert and oriented -3. Appropriate affect. Intact judgment and insight. - Labs CBC & Chem 7: 11/07/20 07:13 11/07/20 07:13 Labs: Abnormal Lab Results - Last 24 Hours (Table) 11/07/20 Range/Units 07:13 Sodium 135 L (137-145) mmol/L Creatinine 1.29 H (0.66-1.25) mg/dL Microbiology - Last 24 Hours (Table) 11/04/20 08:59 Blood Culture - Preliminary Blood No Growth after 72 hours 11/04/20 16:00 Gram Stain - Final Sputum Sputum Culture - Final Assessment and Plan Plan: Assessment: 1 Chest pain of unclear etiology. Pulmonary embolism ruled out. Severe cardiomyopathy with ejection fraction less than 20%. Possibly related to chronic alcohol use 2 Troponin leak, tachycardia, bilateral pleural effusions, mild central alveolar edema. 3 Thoracic adenopathy of unclear etiology, presumed reactive, possible acute infectious process versus viral bronchiolitis, sarcoidosis. 4 Recent symptoms of upper respiratory infection 5 Mild leukocytosis 6 Elevated d-dimer. CT angiogram ruled out pulmonary embolism. Negative DVT Doppler. 7 Daily alcohol use 8 Marijuana use Plan: Cardiac catheterization showed normal coronary arteries, diuretics, Adan inhibitors, beta blockers per cardiology recommendations. Continue CIWA protocol. Clear for discharge home when cleared by cardiology. Patient will need outpatient follow-up for thoracic adenopathy with another CT chest in 5-6 months I performed a history & physical examination of the patient and discussed their management with my nurse practitioner, Mouna Bull. I reviewed the nurse practitioner's note and agree with the documented findings and plan of care. Lung sounds are positive for clear breath sounds. The findings and the impression was discussed with the patient. I attest to the documentation by the nurse practitioner. Time with Patient: Less than 30
[2020-11-07] MEDS: ACETAMINOPHEN TAB 325 MG TAB PO PRN (17:58)
[2020-11-08] MEDS: THIAMINE 100 MG TAB PO SCH ×2 (06:21→09:55)
[2020-11-08] MEDS ORDERED: PANTOPRAZOLE 40 MG TABLET PO SCH (07:30)
[2020-11-08 08:10] VITALS: BP 111/68; PULSE 115; RESP 18; TEMP 98.1
[2020-11-08] MEDS: FUROSEMIDE 20 MG TAB PO SCH ×2 (08:24→09:55)
[2020-11-08] MEDS: METOPROLOL SUCCINATE (ER) 50 MG TAB.ER.24H PO SCH (08:24)
[2020-11-08] MEDS: lisinopriL 5 MG TAB PO SCH (08:24)
[2020-11-08] MEDS: SPIRONOLACTONE 25 MG TAB PO SCH (08:24)
[2020-11-08 08:51] LABS: Basophils # (A) 0.1 k/uL (0-0.2); Basophils % (A) 1 %; Eosinophils # (A) 0.2 k/uL (0-0.7); Eosinophils % (A) 3 %; HCT 51.9 % (39.0-53.0); HGB 17.6 gm/dL (13.0-17.5); Lymphocytes # (A) 1.3 k/uL (1.0-4.8); Lymphocytes % (A) 18 %; MCH 32.3 pg (25.0-35.0); MCHC 33.8 g/dL (31.0-37.0); MCV 95.5 fL (80.0-100.0); Mean Platelet Volume 6.9; Monocytes # (A) 0.6 k/uL (0-1.0); Monocytes % (A) 9 %; Neutrophils # (A) 4.9 k/uL (1.3-7.7); Neutrophils % (A) 67 %; Platelet Count 347 k/uL (150-450); RBC 5.43 m/uL (4.30-5.90); RDW 12.8 % (11.5-15.5); WBC 7.3 k/uL (3.8-10.6)
--- NOTE | 2020-11-08 08:56 | P.DS ---
Providers Date of admission: 11/07/20 08:19 Expected date of discharge: 11/08/20 Attending physician: Meir Goss Consults: 11/04/20 10:40 Consult Physician Urgent Consulting Provider: [facility] Consult Reason/Comments: chest pain, tachycardic Do you want consulting provider notified?: Yes 11/04/20 11:42 Consult Physician Routine Consulting Provider: Bandar Burrell Consult Reason/Comments: abnormal ct Do you want consulting provider notified?: Yes Primary care physician: [facility] Course: This is a 25-year-old male with past medical history significant for heavy alcohol abuse who presented to the emergency room with chest pain. Patient was evaluated in the ER and admitted to the hospital for further management of his medical problems noted below. 1. Non-ST elevation HI, treated with optimal medical management and IV heparin. Currently chest pain-free. Troponin peaked at 4.7. Seen and evaluated by cardiology. Left heart catheterization showed normal coronary arteries. 2. Severe cardiomyopathy most likely alcohol induced. Echocardiogram showed EF of 25%. Patient started on metoprolol, Aldactone, Lasix, and lisinopril. Follow up as directed in the office with cardiology 3. Acute systolic heart failure exacerbation, started on IV Lasix with good response. Transitioned to oral Lasix 20 mg daily 4. Acute bronchitis, received 3 days course of Augmentin. Antibiotic discontinued by pulmonology. COVID-19 negative in the ER 5. Sepsis without septic shock on presentation, lactic acid elevated on presentation now resolved. Blood culture negative to date 6. Elevated d-dimer, CT angiogram in the ER negative for PE though was a suboptimal study. PE is less likely clinically. ultrasound of the lower extremities negative for DVT 7. Alcohol withdrawal, resolved. 8. Alcohol abuse: Counseled extensively to quit. Social work consult to help with resources. Started on vitamins. 9. Marijuana smoking, counseled to quit Patient will be discharged home in a stable condition. For further details about this hospitalization please refer to the electronic chart. Time spent on discharge > 30 minutes including counseling and coordination of care Patient Condition at Discharge: Stable Plan - Discharge Summary Discharge Rx Participant: No New Discharge Prescriptions: New Spironolactone [Aldactone] 25 mg PO DAILY #30 tab Folic Acid 1 mg PO DAILY #30 tablet Furosemide [Lasix] 20 mg PO 0900,1700 #30 tab Atorvastatin Calcium [Lipitor] 20 mg PO HS #30 tab Lisinopril [Prinivil] 10 mg PO DAILY #30 tab Metoprolol Succinate (ER) [Toprol XL] 50 mg PO DAILY #30 tab.er.24h Thiamine [Vitamin B-1] 100 mg PO DAILY #30 tablet Continue Aspirin EC [Ecotrin Low Dose] 81 mg PO DAILY PRN PRN Reason: Pain Discontinued Ibuprofen [Advil] 200 mg PO Q8HR PRN PRN Reason: Pain Discharge Medication List Aspirin EC [Ecotrin Low Dose] 81 mg PO DAILY PRN 11/04/20 [History] Atorvastatin Calcium [Lipitor] 20 mg PO HS #30 tab 11/08/20 [Rx] Folic Acid 1 mg PO DAILY #30 tablet 11/08/20 [Rx] Furosemide [Lasix] 20 mg PO 0900,1700 #30 tab 11/08/20 [Rx] Lisinopril [Prinivil] 10 mg PO DAILY #30 tab 11/08/20 [Rx] Metoprolol Succinate (ER) [Toprol XL] 50 mg PO DAILY #30 tab.er.24h 11/08/20 [Rx] Spironolactone [Aldactone] 25 mg PO DAILY #30 tab 11/08/20 [Rx] Thiamine [Vitamin B-1] 100 mg PO DAILY #30 tablet 11/08/20 [Rx] Follow up Appointment(s)/Referral(s): Mariano Cuba MD [STAFF PHYSICIAN] - 1 Week Claudio Kohler MD [Primary Care Provider] - 1-2 days Patient Instructions/Handouts: *Surgery [facility] - After Heart Catheterization - [employer] Analyst Instructions Discharge Disposition: HOME SELF-CARE
[2020-11-08 09:00] LABS: African American GFR (CKD) >90 (>60 ml/min/1.73 sqM); Anion Gap 9 mmol/L; Blood Urea Nitrogen 14 mg/dL (9-20); Calcium 9.3 mg/dL (8.4-10.2); Carbon Dioxide 26 mmol/L (22-30); Chloride 100 mmol/L (98-107); Glucose 90 mg/dL (74-99); Non-African American GFR(CKD) 85 (>60 ml/min/1.73 sqM); Potassium 4.9 mmol/L (3.5-5.1); Sodium 135 mmol/L (137-145)
[2020-11-08] MEDS ORDERED: ATORVASTATIN 40 MG TAB PO SCH (09:00)
--- NOTE | 2020-11-08 13:54 | P.PN ---
Subjective This is a pleasant 25-year-old male past medical history significant for excessive daily alcohol intake who presented to the hospital with symptoms of shortness of breath. He was found to have a severely impaired LV systolic function. He underwent cardiac catheterization revealing normal coronary arteries. He was initiated on heart failure medications. He is seen and examined standing up ambulating in his room in no acute distress. He denies chest pain, dizziness or palpitations. He states his breathing is improved since admission. He denies dyspnea on exertion. Blood pressure 111/68 heart rate 115 afebrile and maintaining oxygen saturation on room air. Laboratory data reviewed, CBC unremarkable, sodium 135, potassium 4.9, creatinine 1.18. Currently maintained on aldactone 25 mg daily, lasix 20 mg BID, atorvastatin 20 mg daily, lisinopril 10 mg daily and toprol 50 mg daily. GENERAL: Well-appearing, well-nourished and in no acute distress. NECK: Supple without JVD or thyromegaly. LUNGS: Breath sounds clear to auscultation bilaterally. Respiration equal and unlabored. No wheezes, rales or rhonchi. HEART: Regular rate and rhythm without murmurs, rubs or gallops. S1 and S2 heard. EXTREMITIES: Normal range of motion, no edema. No clubbing or cyanosis. Peripheral pulses intact. ASSESSMENT Non-ischemic cardiomyopathy NSTEMI Sinus tachycardia Mitral regurgitation Tricuspid regurgitation Pulmonary hypertension Hypertension Dyslipidemia Daily excessive alcohol abuse Marijuana use PLAN Recommend further up titration of his cardiac medications in the outpatient setting. Once on maximally tolerated regimen we will repeat an echo and assess for improvement. May require permanent ICD down the line. Complete alcohol cessation discussed. Close follow up in the office with Dr. Cuba. Nurse Practitioner note has been reviewed, I agree with a documented findings and plan of care. Patient was seen and examined. Objective - Vital Signs Vital signs: Vital Signs Temp 98.1 F 11/08/20 08:00 Pulse 115 H 11/08/20 08:00 Resp 18 11/08/20 08:00 BP 111/68 11/08/20 08:00 Pulse Ox 98 11/08/20 08:57 Intake & Output 11/07/20 11/08/20 11/08/20 18:59 06:59 18:59 Intake Total 1030 250 Balance 1030 250 Weight 108.5 kg Intake: IV 150 Oral 880 250 Other: Voiding Method Toilet Toilet # Voids 2 2 1 - Labs CBC & Chem 7: 11/08/20 07:45 11/08/20 07:45 Labs: Abnormal Lab Results - Last 24 Hours (Table) 11/08/20 11/08/20 Range/Units 07:45 07:45 Hgb 17.6 H (13.0-17.5) gm/dL Sodium 135 L (137-145) mmol/L Microbiology - Last 24 Hours (Table) 11/04/20 08:59 Blood Culture - Preliminary Blood No Growth after 96 hours
== END 2020-11-08 10:36 | disposition home or self-care (01) | DRG 871 ==
LOC: EC 08:04 → 6NMEDSUR 10:55 → 3SCARD 12:01 → OBSVTOIN 11-07 08:19
PROVIDERS: ADMIT Internal Medicine; ATTEND Internal Medicine
PROC: B2151ZZ Fluoroscopy of Left Heart using Low Osmolar Contrast (ICD-10-PCS; principal; 2020-11-07 07:30)
PROC: B2111ZZ Fluoroscopy of Multiple Coronary Arteries using Low Osmolar Contrast (ICD-10-PCS; principal; 2020-11-07 07:30)
DX: A41.9 Sepsis, unspecified organism (principal); I21.4 Non-ST elevation (NSTEMI) myocardial infarction; I50.23 Acute on chronic systolic (congestive) heart failure; I42.8 Other cardiomyopathies; F10.239 Alcohol dependence with withdrawal, unspecified; I27.20 Pulmonary hypertension, unspecified; I11.0 Hypertensive heart disease with heart failure; F12.929 Cannabis use, unspecified with intoxication, unspecified; Z20.822 Contact with and (suspected) exposure to COVID-19; J20.9 Acute bronchitis, unspecified; J45.909 Unspecified asthma, uncomplicated; E78.5 Hyperlipidemia, unspecified; I08.1 Rheumatic disorders of both mitral and tricuspid valves; R59.9 Enlarged lymph nodes, unspecified; Y90.0 Blood alcohol level of less than 20 mg/100 ml; Z71.41 Alcohol abuse counseling and surveillance of alcoholic; Z71.51 Drug abuse counseling and surveillance of drug abuser; Z82.49 Family history of ischemic heart disease and other diseases of the circulatory system
CPT/HCPCS: 36415; 71045; 71046; 71275; 80048; 80053; 80061; 80320; 82164; 82728; 83605; 83615; 83735; 83880; 84145; 84443; 84484; 85025; 85379; 85610; 85652; 85730; 86140; 87040; 87070; 87205; 87635; 93005; 93306; 93458; 93970; 94760; 96361; 96372; 96374; 96375; 99285